=== PATIENT | female | born 1955 | race Caucasian/White ===

== ENCOUNTER → 2019-03-22 14:37 | Outpatient (BNVA) | payer MEDICAID, SELFPAY | PROVIDERS: Family Provider Nurse Practitioner; PCP Physician Assistant; Visit Provider Nurse Practitioner Psychiatric/Mental Health | DX: F43.12 Post-traumatic stress disorder, chronic (principal); F41.9 Anxiety disorder, unspecified; F17.210 Nicotine dependence, cigarettes, uncomplicated | CPT/HCPCS: 99214 ==

== ENCOUNTER → 2019-06-21 08:12 | Outpatient (BNVA) | payer MEDICAID, SELFPAY | PROVIDERS: Family Provider Nurse Practitioner; PCP Physician Assistant; Visit Provider Nurse Practitioner Psychiatric/Mental Health | DX: F43.12 Post-traumatic stress disorder, chronic (principal); F41.9 Anxiety disorder, unspecified; F17.210 Nicotine dependence, cigarettes, uncomplicated | CPT/HCPCS: 99213 ==

== ENCOUNTER → 2019-07-19 08:22 | Outpatient (BNVA) | payer MEDICAID, SELFPAY | PROVIDERS: Family Provider Nurse Practitioner; PCP Physician Assistant; Visit Provider Nurse Practitioner Psychiatric/Mental Health | DX: F43.12 Post-traumatic stress disorder, chronic (principal); F41.9 Anxiety disorder, unspecified; Z63.4 Disappearance and death of family member | CPT/HCPCS: 90832; 99213 ==

== ENCOUNTER → 2019-08-16 08:32 | Outpatient (BNVA) | payer MEDICAID, SELFPAY | PROVIDERS: Family Provider Nurse Practitioner; PCP Physician Assistant; Visit Provider Nurse Practitioner Psychiatric/Mental Health | DX: F43.12 Post-traumatic stress disorder, chronic (principal); F41.9 Anxiety disorder, unspecified; F17.210 Nicotine dependence, cigarettes, uncomplicated | CPT/HCPCS: 99212 ==

== ENCOUNTER → 2019-09-27 08:05 | Outpatient (BNVA) | payer MEDICAID, SELFPAY | PROVIDERS: Family Provider Nurse Practitioner; PCP Physician Assistant; Visit Provider Nurse Practitioner Psychiatric/Mental Health | DX: F41.9 Anxiety disorder, unspecified (principal); F43.12 Post-traumatic stress disorder, chronic; F17.210 Nicotine dependence, cigarettes, uncomplicated | CPT/HCPCS: 99212 ==

== ENCOUNTER 2019-10-13 20:46 | Emergency (ER) | payer MEDICAID, SELFPAY ==
[2019-10-13 21:02] VITALS: BP 162/97; PULSE 90; RESP 18; TEMP 35.7; O2SAT 96
--- NOTE | 2019-10-13 21:50 | ED_ITS ---
HPI - Back Pain/Injury General: Chief Complaint: Back Pain/Injury Stated Complaint: back pain Time Seen by Provider: 10/13/19 21:38 Source: patient Mode of arrival: ambulatory Limitations: no limitations History of Present Illness: HPI Narrative: Has a history of rheumatoid arthritis and chronic back pain. She sees pain management who gives her intermittent injections in her back. She also has chronic pain. This current episode started a few days ago and has been gradually worsening. It is currently unbearable. Because of some shooting pain down her thigh on the left. MD elicited complaint: back pain Pertinent past history: prior back pain and arthritis Onset (ago): day(s) Timing: constant and progressively worsening Severity: severe Similar Symptoms Previously: Yes Quality: tingling and other (shooting) Location: lumbar spine Radiation: left upper leg Exacerbating factors: movement Relieving factors: none Associated symptoms: Reports nausea; Deny chills, dysuria, fever(s) or urinary urgency Review of Systems General: Reports: 10 or more systems reviewed and unremarkable except in HPI and below Const: Denies: fever(s), chills or body aches Eyes: Denies: change in vision or blurry vision ENMT: Denies: throat pain, enlarged tonsils, odynophagia, hoarseness, mouth pain or swelling of lips/tongue Card: Denies: palpitations, irregular heart rhythm, edema or swelling of feet/ankles Resp: Denies: dyspnea, productive cough or non-productive cough GI: Reports: nausea : Denies: flank pain, difficulty voiding, dysuria, urinary frequency, urinary urgency or urinary hesitancy Musc: Reports: back pain; Denies: neck pain or extremity swelling Skin/Breast: Denies: rash, pruritus or erythema Neuro: Denies: headache(s), numbness in extremities or weakness in extremities Endo: Denies: polyuria, polydipsia or tired all the time PFSH ED PFSH: Social History (Reviewed 10/13/19 @ 21:54 by Jannet Grant MD, [facility] [place]) Smoking and tobacco status: current every day smoker cigarettes Packs smoked per day: 1 Years cigarettes smoked: 41 Quit status (tobacco): has tried quititng Number of times tried to quit tobacco: 1 Second hand smoke exposure: Yes Smoking risk assessment/counseling performed?: No Reason smoking risk assessment not done: patient refused Physical Exam Const: COMMON NORMALS: no acute distress, average body habitus, patient oriented x3, no limitations, healthy appearing, alert and well nourished HENMT: COMMON NORMALS: normocephalic, atraumatic and moist oral mucous membranes HEAD & SCALP: normocephalic and atraumatic Neck/C-Spine: COMMON NORMALS: no meningeal signs and no JVD Resp: COMMON NORMALS: normal respiratory effort, No retractions, No use of accessory muscles, clear to auscultation bilaterally and percussion normal AUSCULTATION: clear to auscultation bilaterally PERCUSSION: percussion normal Cardio: COMMON NORMALS: no JVD, regular rate, regular rhythm, S1 normal heart sound present, S2 normal heart sound present, No gallops present (Cardio), No clicks present (Cardio), No murmurs present (Cardio), No rub (Cardio) and Peripheral pulses 2+ throughout RATE: regular rate RHYTHM: regular rhythm HEART SOUNDS: S1 normal heart sound present and S2 normal heart sound present PERIPHERAL PULSES: Peripheral pulses 2+ throughout GI: COMMON NORMALS: Normal to inspection, nondistended, normoactive bowel sounds present, Soft to palpation, non-tender, No hepatosplenomegaly present, no masses and no bruits PALPATION: Yes Soft to palpation and Yes No hepatosplenomegaly present : COMMON NORMALS: Yes no CVA tenderness BLADDER/KIDNEY EXAM: Yes no CVA tenderness Back/Pelvis: COMMON NORMALS: no CVA tenderness SACROILIAC JOINTS: Yes SI joint(s) abnormal (Marked tenderness of the left SI joint) SI joint details: tender to palpation Extremity: COMMON NORMALS: normal to inspection, full ROM, capillary refill normal, no calf tenderness and no pedal edema Neuro: COMMON NORMALS: patient oriented x3 SENSORIUM/ORIENTATION: Yes alert MENINGEAL SIGNS: Yes no meningeal signs Skin: COMMON NORMALS: no rashes or lesions noted, no wounds, turgor normal, no jaundice, no petechiae and no mottling GENERAL SKIN EXAM: no rashes or lesions noted and turgor normal Course Reevaluation(s): Reevaluation #1: Patient feels better. She i ready to be discharged home. Time: 22:42 Vital Signs: Vital signs: Vital Signs Temperature 96.3 F L 07/29/20 21:02 Pulse Rate 90 10/13/19 21:02 Respiratory Rate 18 10/13/19 21:02 Blood Pressure 162/97 10/13/19 21:02 Pulse Oximetry 96 10/13/19 21:02 MDM - Back Pain/Injury MDM Narrative: Medical decision making narrative: Patient with an acute exacerbation of her chronic back pain. Examination is consistent with sacroiliitis. She was given intramuscular injections of ketorolac and Norflex. As well as dexamethasone. Pain improved. She is discharged home on oral pain medication and steroids. She will follow-up with her primary care provider and other specialist. Discharge Plan Discharge Patient Disposition: Home Clinical Impression: Sacroiliitis Condition: Stable Prescriptions: [place] 7.5-325 mg tablet 1 tab PO Q8H PRN (Reason: pain) Qty: 12 RF: 0 prednisone 20 mg tablet 20 mg PO DAILY 3 Days Qty: 3 RF: 0 Continued propranolol 40 mg tablet 40 mg PO BID RF: 0 multivitamin Tablet 1 tab PO DAILY RF: 0 albuterol sulfate 90 mcg/actuation HFA aerosol inhaler 1 inh INHALATION DAILY RF: 0 hydroxyzine pamoate [Vistaril] 25 mg capsule 25 mg PO .qhs PRN (Reason: insomnia) Qty: 30 RF: 1 cetirizine [Zyrtec] 10 mg tablet 10 mg PO DAILY RF: 0 lidocaine 5 % adhesive patch,medicated 1 patch TOPICAL DAILY RF: 0 ascorbic acid (vitamin C) 500 mg capsule 500 mg PO DAILY RF: 0 coenzyme Q10 200 mg capsule 200 mg PO DAILY RF: 0 docusate sodium [Colace] 100 mg capsule 100 mg PO BID RF: 0 bisacodyl 5 mg tablet 10 mg PO DAILY RF: 0 meloxicam 15 mg tablet 15 mg PO DAILY RF: 0 metformin 500 mg tablet 500 mg PO DAILY RF: 0 aripiprazole [Abilify] 10 mg tablet 10 mg PO DAILY Qty: 30 RF: 2 fluoxetine [Prozac] 20 mg capsule 60 mg PO DAILY Qty: 90 RF: 2 memantine [Namenda] 10 mg tablet 10 mg PO BID Qty: 60 RF: 2 lisinopril 5 mg tablet 5 mg PO DAILY Qty: 30 RF: 0 atorvastatin 40 mg tablet 40 mg PO DAILY Qty: 30 RF: 0 Discontinued hydrocodone-acetaminophen 7.5-325 mg tablet 1 tab PO Q6H PRNRF: 0 Discharge Orders: Discharge Order (Routine); Ordered 10/13/19 Ordered By: Jannet Grant Referrals: Deanna Young PA [Primary Care Provider] - 4-7 days Discharge Diet: Usual diet Discharge Activity: Increase activity as tolerated Patient Instructions: Sacroiliitis (ED) Activity Restrictions/Additional Instructions: Return for any new or worsening symptoms. Follow-up with your primary care provider within 1 week. Follow-up with your pain management doctor and your rehabilitation program coordinator. Take the medications as prescribed. Coding Level of Care Code ED Pet Caretaker for Chg Fwd Exam Comprehensive
[2019-10-13] MEDS: ketorolac 30 mg/mL INJ IM (22:27)
[2019-10-13] MEDS: orphenadrine 30 mg/mL Inj 2 mL 60 MG IM (22:29)
[2019-10-13] MEDS: dexamethasone 10 mg/mL INJ IM (22:31)
[2019-10-13 23:02] VITALS: BP 146/88; PULSE 76; RESP 18; O2SAT 97
== END 2019-10-13 23:04 | disposition home or self-care (01) ==
PROVIDERS: Emergency Provider Family Medicine; PCP Physician Assistant
DX: M46.1 Sacroiliitis, not elsewhere classified (principal); F17.210 Nicotine dependence, cigarettes, uncomplicated
CPT/HCPCS: 12345; 96372; 99281; 99283; J1100; J1885; J2360

== ENCOUNTER 2019-11-05 15:30 | Outpatient (CLI) | payer MEDICAID, SELFPAY ==
--- NOTE | 2019-11-05 16:14 | MR_ITS ---
WS: [id number] EXAM: MR lumbar spine wo con* [id number] DATE OF EXAMINATION: 11/05/2019, 1624 hours COMPARISON: MRI of the lumbar spine from 01/19/2010 HISTORY: 63 years old with low back pain TECHNIQUE: Sagittal T1, T2 and T2 inversion recovery: Axial proton density and T2 FINDINGS: Lower thoracic and lumbar vertebrae as well as upper sacral segments are of normal height and marrow signal characteristics. Cord is normal caliber and terminates at the mid to inferior L1 level. Visualized cord is normal in s ignal characteristics. Disc levels at T7-8, T8-9, T9-10, T10-11 and T11-12 all show slight degenerative spondylosis changes without protrusion, canal or neural foraminal stenosis. T12-L1: Minimal desiccation of the disc otherwise normal discs level L1-2: Slight desiccation of the disc with minimal disc bulging. Minimal facet arthropathy changes. No protrusion, canal or neural foraminal stenosis. L2-3: Slight desiccation of the disc. Minimal disc bulging into both neural foramina. Minimal facet a rthropathic changes. No protrusion, canal or neural foraminal stenosis L3-4: Minimal desiccation of the disc otherwise normal disc level. Minimal facet arthropathy changes. No protrusion, canal or neural foraminal stenosis L4-5: Moderate desiccation of the disc. Moderate facet arthropathy changes. Minute amount of anteroli sthesis of L4 on 5. No findings of protrusion are identified. Both neural foramen are minimally narro wed without stenosis. No central canal stenosis. L5-S1: Desiccation of the disc. Minimal facet arthropathy changes. No protrusion, canal or neural for aminal stenosis. High intensity zone in the posterior annulus of the disc in the left lateral recess to the left medial neural foraminal position consistent with a fissure or tear. No abnormal inflammatory changes are seen on inversion recovery sequencing. Paraspinal soft tissues a re fairly unremarkable. MR/MR lumbar spine wo con* [id number] IMPRESSION: Multiple levels of slight arthritis. Most severe facet arthropathy changes are noted at the L4-5 level with minimal anterolisthesis of L4 on L5. No findings o f protrusion, canal or neural foraminal stenosis. L5-S1 disc with a high intensity zone in the posterior annulus left lateral rec ess to medial left neural foramen position consistent with a fissure or tear.
== END 2019-11-05 15:31 | disposition home or self-care (01) ==
LOC: RADSHAW 15:34
PROVIDERS: PCP Physician Assistant; Visit Provider Internal Medicine Rheumatology
DX: M54.16 Radiculopathy, lumbar region (principal); M54.5 Low back pain
CPT/HCPCS: 72148

== ENCOUNTER → 2019-12-20 09:11 | Outpatient (BNVA) | payer MEDICAID, SELFPAY | PROVIDERS: Family Provider Nurse Practitioner; PCP Physician Assistant; Visit Provider Nurse Practitioner Psychiatric/Mental Health | DX: F41.9 Anxiety disorder, unspecified (principal); F43.12 Post-traumatic stress disorder, chronic; F17.210 Nicotine dependence, cigarettes, uncomplicated | CPT/HCPCS: 99212 ==

== ENCOUNTER → 2020-02-15 08:03 | Outpatient (BNVA) | payer MEDICAID, SELFPAY | PROVIDERS: Family Provider Nurse Practitioner; PCP Physician Assistant; Visit Provider Nurse Practitioner Psychiatric/Mental Health | DX: F43.12 Post-traumatic stress disorder, chronic (principal); F41.9 Anxiety disorder, unspecified; F17.210 Nicotine dependence, cigarettes, uncomplicated | CPT/HCPCS: 99212 ==

== ENCOUNTER → 2020-04-20 09:58 | Outpatient (BNVA) | payer MEDICAID, SELFPAY | PROVIDERS: Family Provider Nurse Practitioner; PCP Physician Assistant; Visit Provider Nurse Practitioner Psychiatric/Mental Health | DX: F41.9 Anxiety disorder, unspecified (principal); F43.12 Post-traumatic stress disorder, chronic; F17.210 Nicotine dependence, cigarettes, uncomplicated | CPT/HCPCS: 99213 ==

== ENCOUNTER → 2020-05-19 09:22 | Outpatient (BNVA) | payer MEDICAID, SELFPAY | PROVIDERS: Family Provider Nurse Practitioner; PCP Physician Assistant; Visit Provider Surgery | DX: Z20.822 Contact with and (suspected) exposure to COVID-19 (principal) | CPT/HCPCS: 87635 ==

== ENCOUNTER 2020-05-25 06:24 | Day surgery (SDC) | payer MEDICAID, SELFPAY ==
[2020-05-23 14:17] VITALS: BMI 23.3
--- NOTE | 2020-05-25 06:35 | W.PM.OPSUD ---
Surgery/Procedure H&P Update DATE OF PROCEDURE: May 25, 2020 DATE H&P PERFORMED: 05/16/20 H&P UPDATE INFORMATION: No changes to prior documentation CHANGES TO PREVIOUS DOCUMENTATION: I noted that the patient does not take [id number] NSAIDs on a regular basis, but does have meloxicam on her medication list and says she does take this daily. PLANNED PROCEDURE: Operation Date: 05/25/20 07:00 Proposed Procedures p EGD 10270 R10.13 K21.9 Z87.11(Not Applicable) - Roby Mims MD
[2020-05-25 06:42] VITALS: BP 144/102; PULSE 93; RESP 18; TEMP 36.4; O2SAT 97
--- NOTE | 2020-05-25 06:51 | ANES.PREANE2 ---
Pre-Anesthetic Assessment Pre-Anesthetic Assessment: Height/Weight: Height 1.68 m Weight 65.771 kg Temp Pulse Resp BP Pulse Ox 97.6 F 93 18 144/102 97 05/25/20 06:42 05/25/20 06:42 05/25/20 06:42 05/25/20 06:42 05/25/20 06:42 Proposed Procedure: Operation Date: 05/25/20 07:00 Proposed Procedures p EGD 38446 R10.13 K21.9 Z87.11(Not Applicable) - Roby Mims MD Familial anesthetic complications: none Was Beta Brissa taken within 24 hours: Yes (no) Last intake: Intake Last Liquid Date 05/24/20 Last Liquid Time 18:00 Last Solid Date 05/24/20 Last Solid Time 18:00 Social: Social History: Tobacco Exam: Pre-Anes Outpt Exam: alert and oriented x 3 Airway: Submandibular: WNL Cervical ROM: WNL MP: 2 Dentition: Partials History/ROS: No significant history except as noted Pulmonary: Pulmonary: Asthma, COPD and Sleep apnea CV/HEM: CV/HEM: HTN : : None reported Hepatic: Hepatic: None reported GI: GI: GERD Metabolic: Metabolic: DM Musc/skel: Musc/skel: Lower Back Pain and RA Neuropsych: Neuropsych: Anxiety and Depression Anesthetic Plan: ASA status: 3 Anesthesia: Anesthesia Evaluation and MAC Risk of > 500 ml blood loss (7ml/kg in children): No PFSH Anesthesia PFSH: Social History (System 10/29/19 @ 12:58 by Hiwot Gamboa) Smoking and tobacco status: current every day smoker cigarettes Packs smoked per day: 1 Years cigarettes smoked: 41 Quit status (tobacco): has tried quititng Number of times tried to quit tobacco: 1 Second hand smoke exposure: Yes Smoking risk assessment/counseling performed?: No Reason smoking risk assessment not done: patient refused Data Anesthesia Cardiac Studies: No Data to Display
[2020-05-25] MEDS: sodium chloride 0.9% 1,000 ML 30 ML IV (06:53)
[2020-05-25 07:16] VITALS: BP 132/79; PULSE 80; RESP 18; TEMP 36.7; O2SAT 95
[2020-05-25 07:31] VITALS: BP 141/107; PULSE 79; RESP 18; O2SAT 94
--- NOTE | 2020-05-25 11:03 | ANE.PACU2 ---
Inpatient post-anesthesia follow up: Airway intact: Yes Vital signs: Temperature 98.1 F Pulse Rate 79 Respiratory Rate 18 Blood Pressure 141/107 Pulse Oximetry 94 Oxygen Delivery Me thod Room Air Oxygen Flow Rate Fraction of Inspir ed Oxygen Hydration adequate: Yes Nausea and vomiting: No Pain level: 1 Mental status: Baseline
[2020-05-26 12:57] LABS: H. Pylori / CLO Test Negative
== END 2020-05-25 07:40 | disposition home or self-care (01) ==
PROVIDERS: Family Provider Nurse Practitioner; PCP Physician Assistant; Visit Provider Surgery
PROC: 0DJ08ZZ Inspection of Upper Intestinal Tract, Via Natural or Artificial Opening Endoscopic (ICD-10-PCS; CPT 43235; principal; 2020-05-25 07:00)
DX: R10.13 Epigastric pain (principal); K44.9 Diaphragmatic hernia without obstruction or gangrene; K29.70 Gastritis, unspecified, without bleeding; K21.9 Gastro-esophageal reflux disease without esophagitis; Z87.11 Personal history of peptic ulcer disease; Z86.010 Personal history of colon polyps; E11.9 Type 2 diabetes mellitus without complications; J43.9 Emphysema, unspecified; G47.30 Sleep apnea, unspecified; Z79.84 Long term (current) use of oral hypoglycemic drugs; I10 Essential (primary) hypertension; M06.9 Rheumatoid arthritis, unspecified; F17.210 Nicotine dependence, cigarettes, uncomplicated
CPT/HCPCS: 12345; 43239; 87077; 96360; J7030

== ENCOUNTER → 2020-07-13 08:24 | Outpatient (BNVA) | payer MEDICAID, SELFPAY | PROVIDERS: Family Provider Nurse Practitioner; PCP Physician Assistant; Visit Provider Nurse Practitioner Psychiatric/Mental Health | DX: F41.9 Anxiety disorder, unspecified (principal); F43.12 Post-traumatic stress disorder, chronic; F17.210 Nicotine dependence, cigarettes, uncomplicated; Z79.899 Other long term (current) drug therapy | CPT/HCPCS: 99213 ==

== ENCOUNTER → 2020-10-05 07:34 | Outpatient (BNVA) | payer MEDICAID, SELFPAY | PROVIDERS: Family Provider Nurse Practitioner; PCP Physician Assistant; Visit Provider Nurse Practitioner Psychiatric/Mental Health | DX: F41.9 Anxiety disorder, unspecified (principal); F43.12 Post-traumatic stress disorder, chronic; Z79.899 Other long term (current) drug therapy; F17.210 Nicotine dependence, cigarettes, uncomplicated | CPT/HCPCS: 99213 ==

== ENCOUNTER → 2020-10-11 09:08 | Outpatient (BNVA) | payer MEDICAID, SELFPAY | PROVIDERS: Family Provider Nurse Practitioner; PCP Physician Assistant; Visit Provider Nurse Practitioner Psychiatric/Mental Health | DX: Z79.899 Other long term (current) drug therapy (principal) | CPT/HCPCS: 80061; 83036 ==

== ENCOUNTER → 2020-11-30 08:37 | Outpatient (BNVA) | payer MEDICAID, SELFPAY | PROVIDERS: Family Provider Nurse Practitioner; PCP Physician Assistant; Visit Provider Nurse Practitioner Psychiatric/Mental Health | DX: F41.9 Anxiety disorder, unspecified (principal); F43.12 Post-traumatic stress disorder, chronic; F17.210 Nicotine dependence, cigarettes, uncomplicated | CPT/HCPCS: 99213 ==

== ENCOUNTER 2020-12-21 20:00 | Outpatient (CLI) | payer MEDICAID, SELFPAY | END 2020-12-21 20:01 | disposition home or self-care (01) | LOC: SLEEP 12-26 07:55 | PROVIDERS: Family Provider Nurse Practitioner; PCP Physician Assistant; Visit Provider Physician Assistant | DX: G47.10 Hypersomnia, unspecified (principal); R06.83 Snoring; R53.83 Other fatigue | CPT/HCPCS: 95810 ==

== ENCOUNTER 2020-12-26 13:02 | Outpatient (CLI) | payer MEDICAID, SELFPAY ==
--- NOTE | 2020-12-26 13:45 | MR_ITS ---
WS: [id number] MRI BRAIN WITH AND WITHOUT CONTRAST HISTORY: MILD COGNITIVE IMPAIRMENT W/MEMORY LOSS COMPARISON: 11/02/2008 TECHNIQUE: Multiplanar imaging performed through the brain with MultiHance 20 ml's IV. No acute infarcts are seen. Goddard-white matter differentiation is well preserved. Numerous scattered T 2 and FLAIR signal hyperintensities in the subcortical white matter with mild progression since the s tudy from 2008. No prior infarct or hemorrhage. No susceptibility artifacts or prior lacunar infarcts. Ventricles and extra-axial spaces are normal. Clivus and pituitary gland are normal. Visualized posterior fossa and brainstem are also normal. Postcontrast images are negative for masses or vascular malformations. Dural venous sinuses are normal. Paranasal sinuses: Well aerated with no significant disease. Mastoid air cells: Normal. Calvarium and scalp: Normal. MR/MR head wo/w con [id number] IMPRESSION: 1. No acute infarct, hemorrhage or mass. 2. Moderate small vessel ischemic changes in the white matter. Progressed sinc e 2008. No prior large territory infarct. 3. No significant atrophy.
[2020-12-26] MEDS: gadobenate dimeglumine 20 mL vial IV (14:28)
== END 2020-12-26 13:03 | disposition home or self-care (01) ==
LOC: RADSHAW 13:07
PROVIDERS: PCP Physician Assistant; Visit Provider Physician Assistant
DX: G31.84 Mild cognitive impairment of uncertain or unknown etiology (principal)
CPT/HCPCS: 70553; A9577

== ENCOUNTER → 2021-02-22 08:55 | Outpatient (BNVA) | payer MEDICAID, SELFPAY | PROVIDERS: PCP Physician Assistant; Visit Provider Nurse Practitioner Psychiatric/Mental Health | DX: F41.9 Anxiety disorder, unspecified (principal); F43.12 Post-traumatic stress disorder, chronic; Z63.0 Problems in relationship with spouse or partner; F17.210 Nicotine dependence, cigarettes, uncomplicated | CPT/HCPCS: 99213 ==

== ENCOUNTER → 2021-05-17 12:44 | Outpatient (BNVA) | payer MEDICAID, SELFPAY | PROVIDERS: PCP Physician Assistant; Visit Provider Nurse Practitioner Psychiatric/Mental Health | DX: F41.9 Anxiety disorder, unspecified (principal); F43.12 Post-traumatic stress disorder, chronic; F17.210 Nicotine dependence, cigarettes, uncomplicated; R41.3 Other amnesia; Z79.899 Other long term (current) drug therapy | CPT/HCPCS: 99213 ==

== ENCOUNTER → 2021-08-08 14:26 | Outpatient (BNVA) | payer MEDICAID, SELFPAY | PROVIDERS: PCP Physician Assistant; Visit Provider Internal Medicine | DX: B16.9 Acute hepatitis B without delta-agent and without hepatic coma (principal); Z79.899 Other long term (current) drug therapy; R41.3 Other amnesia; F17.210 Nicotine dependence, cigarettes, uncomplicated; F41.9 Anxiety disorder, unspecified; F43.12 Post-traumatic stress disorder, chronic | CPT/HCPCS: 80053; 80061; 83036; 85025; 86705; 86706; 86709; 86803; 87340; 87517 ==

== ENCOUNTER → 2021-08-20 08:56 | Outpatient (BNVA) | payer MEDICAID, SELFPAY | PROVIDERS: PCP Physician Assistant; Visit Provider Nurse Practitioner Psychiatric/Mental Health | DX: F41.9 Anxiety disorder, unspecified (principal); F43.12 Post-traumatic stress disorder, chronic; R41.3 Other amnesia | CPT/HCPCS: 99213 ==

== ENCOUNTER → 2021-09-05 15:09 | Outpatient (BNVA) | payer MEDICAID, SELFPAY | PROVIDERS: PCP Physician Assistant; Visit Provider Internal Medicine | DX: B16.9 Acute hepatitis B without delta-agent and without hepatic coma (principal); Z79.899 Other long term (current) drug therapy | CPT/HCPCS: 80053; 86705; 86706; 87340 ==

== ENCOUNTER → 2021-12-19 15:14 | Outpatient (BNVA) | payer MEDICARE, MEDICAID, SELFPAY | PROVIDERS: PCP Physician Assistant; Visit Provider Internal Medicine | DX: B18.1 Chronic viral hepatitis B without delta-agent (principal) | CPT/HCPCS: 80053; 87517 ==

== ENCOUNTER → 2021-12-20 08:34 | Outpatient (BNVA) | payer MEDICARE, MEDICAID, SELFPAY | PROVIDERS: PCP Physician Assistant; Referring Provider Physician Assistant; Visit Provider Student in an Organized Health Care Education/Training Program | DX: M18.11 Unilateral primary osteoarthritis of first carpometacarpal joint, right hand (principal) | CPT/HCPCS: 99204 ==

== ENCOUNTER 2021-12-25 06:00 | Outpatient (RCR) | payer MEDICARE, MEDICAID, SELFPAY | END 2022-01-14 23:59 | disposition home or self-care (01) | LOC: SOT 06:00 | PROVIDERS: PCP Physician Assistant; Visit Provider Physician Assistant | DX: M79.644 Pain in right finger(s) (principal); Z96.691 Finger-joint replacement of right hand | CPT/HCPCS: 97110; 97140; 97166; L3807 ==

== ENCOUNTER 2022-01-02 08:39 | Day surgery (SDC) | payer MEDICARE, MEDICAID, SELFPAY ==
[2022-01-01 09:56] VITALS: BMI 25.7
--- NOTE | 2022-01-02 | SCC_ITS ---
Procedure Done: Right thumb CMC joint arthroplasty(trapeziectomy and suspensioplasty) 15 seconds of fluoroscopic guidance, for a cumulative dose of 0.2 mGy, was provided to Dr. Godoy by the radiology department. C-arm images of the RIGHT finger were saved for the patient's permanent record. [facility]
--- NOTE | 2022-01-02 | XR_ITS ---
WS: [id number] views of the right first finger, C-arm fluoroscopy, 01/02/2022 Clinical Data: right thumb Comparison: Right hand, 12/06/2021 Findings: The trapezium was removed. There are radiopaque surgical items overlying the surgical site XR/XR finger RT min 2V [id number] Impression: Trapezium removal.
[2022-01-02 09:02] VITALS: BP 160/96; PULSE 100; RESP 18; TEMP 36.4; O2SAT 98
[2022-01-02] MEDS: acetaminophen 1,000 MG/100 ML PIGGYBACK 400 MG IV (09:10)
[2022-01-02] MEDS: ketorolac 30 mg/mL INJ IVP (09:10)
[2022-01-02] MEDS: sodium chloride 0.9% 1,000 ML 30 ML IV (09:11)
[2022-01-02 09:37] LABS: Glucose Point of Care 140 mg/dL (70-110)
--- NOTE | 2022-01-02 09:37 | W.PM.OPSUD ---
Surgery/Procedure H&P Update DATE OF PROCEDURE: January 02, 2022 DATE H&P PERFORMED: 12/20/21 CHANGES TO PREVIOUS DOCUMENTATION: None PREOP DIAGNOSIS: Right thumb basal joint arthritis PRIMARY INDICATION FOR PROCEDURE: Right thumb basal joint arthritis failed conservative treatment PLANNED PROCEDURE: Operation Date: 01/02/22 10:05 Proposed Procedures p RIGHT THUMB BASAL JOINT ATHROPLASTY 56776,M79.643(Right) - Marcelo Godoy DO
--- NOTE | 2022-01-02 09:48 | ANES.PREANE2 ---
Pre-Anesthetic Assessment Height/Weight: Height 1.68 m Weight 72.121 kg Temp Pulse Resp BP Pulse Ox O2 Del Method 97.5 F L 100 18 160/96 98 01/02/22 09:02 01/02/22 09:02 01/02/22 09:02 01/02/22 09:02 01/02/22 09:02 01/02/22 09:02 Preop Diagnosis: Right thumb basal joint arthritis Operation Date: 01/02/22 10:05 Proposed Procedures p RIGHT THUMB BASAL JOINT ATHROPLASTY 21637,M79.643(Right) - Marcelo Walt, DO Familial anesthetic complications: None Was Beta Brissa taken within 24 hours: N/A Was Clonidine taken within 24 hours: N/A Last intake: Intake Last Liquid Date 01/01/22 Last Liquid Time 23:00 Last Solid Date 01/01/22 Last Solid Time 23:00 Social Tobacco and No alcohol Exam alert, oriented x 3, clear to auscultation bilaterally and regular rate & rhythm Airway Mallampati: Class II Dentition: loose and partials Pulmonary Chronic Obstructive Pulmonary Disease sarcoidosis Hepatic Hepatitis (B) GI Gastroesophageal Reflux Disease Metabolic Diabetes Mellitus Musc/skel Lower Back Pain and Rheumatoid Arthritis Anesthetic Plan ASA status: 3 Anesthesia: General and Regional (specify below) Risk of > 500 ml blood loss (7ml/kg in children): No Medications/Allergies Home Medications Medication Instructions Recorded Confirmed Last Taken Type albuterol sulfate 90 mcg/actuation 2 inh inhalation DAILY 03/22/19 01/02/22 1 Month Ago History aerosol inhaler ~12/03/21 ascorbic acid (vitamin C) 500 mg 500 mg PO DAILY 03/22/19 01/02/22 01/01/22 History capsule bisacodyl 5 mg tablet 10 mg PO DAILY 03/22/19 01/02/22 01/01/22 History docusate sodium 100 mg capsule 200 mg PO BID 03/22/19 01/02/22 01/01/22 History (Colace) lidocaine 5 % topical patch 1 patch topical DAILY 03/22/19 01/02/22 01/01/22 History meloxicam 15 mg tablet 15 mg PO DAILY 03/22/19 01/02/22 01/01/22 History multivitamin 1 tab PO DAILY 03/22/19 01/02/22 01/01/22 History metformin 500 mg tablet 500 mg PO DAILY 07/16/19 01/02/22 01/01/22 History pantoprazole 40 mg tablet,delayed 40 mg PO DAILY 07/11/20 01/02/22 01/01/22 History release propranolol 40 mg tablet 20 mg PO BID PRN Headache 02/22/21 01/02/22 01/01/22 History tizanidine 2 mg capsule 2 mg PO Q8H PRN Pain 09/05/21 01/02/22 12/31/21 History entecavir 0.5 mg tablet 0.5 mg PO DAILY #90 tabs 10/29/21 01/02/22 01/01/22 Rx aripiprazole 10 mg tablet (Abilify) 10 mg PO DAILY #30 tabs 11/15/21 01/02/22 01/01/22 Rx fluoxetine 40 mg capsule 40 mg PO QAM #30 caps 11/15/21 01/02/22 01/01/22 Rx memantine 10 mg tablet (Namenda) 10 mg PO BID #60 tabs 11/15/21 01/02/22 01/01/22 Rx triamcinolone acetonide 0.1 % 1 applic topical BID #80 grams 12/24/21 01/02/22 Unknown Rx topical ointment hydrocodone 5 mg-acetaminophen 325 1 tab PO Q6H PRN pain 7 days #28 01/02/22 Unknown Rx mg tablet tabs mupirocin 2 % topical ointment 1 applic topical BID PRN sores 01/02/22 01/02/22 2 Months Ago History ~11/02/21 Allergies Allergy/AdvReac Type Severity Reaction Status Date / Time Opioids - Morphine Analogues Allergy Unknown Unknown Verified 01/02/22 08:57 Sulfa (Sulfonamide Allergy rash Verified 01/02/22 08:57 Antibiotics) tiotropium Allergy Unknown Verified 01/02/22 08:57 [From Spiriva with HandiHaler] trazodone Allergy hypersomnia Verified 01/02/22 08:57 Current Medications Generic Name Dose Route Start Last Admin Trade Name Freq PRN Reason Stop Dose Admin Sodium Chloride 1,000 mls @ 30 mls/hr 01/02/22 08:45 01/02/22 09:11 Sodium Chloride 0.9% IV 01/03/22 08:44 30 mls/hr .Q24H BOOGIE Administration PFSH Anesthesia Medical History Arthritis of carpometacarpal (CMC) joint of right thumb Memory impairment Psychiatric care Social History Smoking and tobacco status: current every day smoker cigarettes Packs smoked per day: 0.25 Years cigarettes smoked: 41 Quit status (tobacco): has tried quititng Number of times tried to quit tobacco: 1 Second hand smoke exposure: Yes Smoking risk assessment/counseling performed?: No Reason smoking risk assessment not done: patient refused Data Anesthesia Cardiac Studies: No Data to Display
--- NOTE | 2022-01-02 09:51 | ANES.PROC ---
Anesthesia Procedures Procedure/Date: 01/02/22 Nerve Block ^: Nerve Block 1: Main Anesthesia: general anesthesia Time Out Performed: No Consent: requested by attending/covering physician, from patient, risks and benefits reviewed and patient agrees to proceed Nerve block location: axillary (+ musculocutaneous) Anesthesia monitors applied: pulse oximetry, EKG and BP cuff Nerve block position: supine Anesthetic Used: ropivicaine 0.5% (30 ml) and with decadron (4 mg) Ultrasound used to: recognize landmarks and visualize and ID brachial plexus Interscalene/Femoral BLK: 2 stimuplex 22 g needle used for position and inplane approach, visualize local anesthetic spread and no vascular puncture identified Injection: neg aspiration of heme Patient Tolerated Procedure: well Complications: none
[2022-01-02 11:48] VITALS: BP 137/73; PULSE 77; RESP 14; TEMP 36.3; O2SAT 98
[2022-01-02 11:55] VITALS: BP 163/95; PULSE 80; RESP 14; O2SAT 98
[2022-01-02 11:59] VITALS: BP 174/94; PULSE 76; RESP 14; TEMP 36.1; O2SAT 94
[2022-01-02 12:13] VITALS: BP 154/90; PULSE 76; RESP 18; TEMP 36.1; O2SAT 95
--- NOTE | 2022-01-02 12:17 | PM.OP2 ---
Brief Operative Note Date of procedure: 01/02/22 Pre-op diagnosis: Right thumb basal joint arthritis failed conservative treatment Post-op diagnosis: same Procedure Done: Right thumb CMC joint arthroplasty(trapeziectomy and suspensioplasty) Surgeon: Marcelo Godoy Estimated blood loss (mL): 10 Complications: None Post-op Plan: Patient recover in PACU. Patient fingers warm well perfused. Dressing clean dry and intact. Patient will discharge later today. Patient was given appropriate discharge instructions as well as pain medication postoperatively. We will follow-up with me in office in 2 weeks. Nonweightbearing right hand. Condition: stable Disposition: same day Coding Level of Care Code Acute Avionics Safety Inspector for Daniela Guadalupe
--- NOTE | 2022-01-02 12:19 | PM.PACU ---
PACU note Narrative: Patient seen and evaluated in PACU. Patient recovering well. Patient received block unable assess motor or sensory. Brisk capillary refill less than 2 seconds. Hands are warm well perfused. Patient will discharge later today and plan for follow-up in 2 weeks. Splint on in place dressing clean dry and intact. Exam: awake (Patient received regional anesthesia unable to assess motor or sensory, see narrative for exam) Disposition: discharged
--- NOTE | 2022-01-02 12:19 | PM.OP ---
Operative Report Date of procedure: January 02, 2022 Pre-op diagnosis: Preop Diagnosis Right thumb basal joint arthritis Post-op diagnosis: Same Procedure done: Right thumb CMC joint arthroplasty Implants: Arthrex fiber lock suspension implant Surgeon: Marcelo Godoy DO Estimated blood loss: 10 cc 44 minutes IV fluids: See anesthesia record Complications: None Findings: See operative report narrative Condition: stable Disposition: same day Brief History: Mabel is a pleasant 66-year-old female who has been worked up in the outpatient setting for right thumb basal joint arthritis. Upon my evaluation and work-up with patient she has had over 10 injections into this right thumb by previous surgeons and primary care providers for her in the past. This point time she has significant pain that is debilitating her daily activities. Patient is failed conservative treatment for her right thumb arthritis. We had detailed discussion about continuing with conservative measures versus surgical intervention. Through shared decision making we agreed to proceed with surgical intervention for right thumb basal joint CMC arthroplasty. She understands the risk benefits complication alternatives surgical treatment options. She agrees to proceed with surgical intervention consent was obtained in office. Patient understands and agrees to proceed with current plan. All questions answered. Procedure: Patient was seen and evaluated in the preoperative holding area. Consent was reviewed with patient correct extremity was marked. Seen evaluated by preoperative and anesthesia team once cleared for surgery she was taken back to the operative suite placed onto the OR table in supine position with right armboard in place. She was appropriately secured to the bed all bony prominences well-padded. Underwent anesthesia per the anesthesia department. The right upper extremity was then placed with a nonsterile tourniquet. Right upper extremity prepped and draped in standard orthopedic fashion. Final timeout performed. Patient received appropriate preoperative antibiotics. Esmarch tourniquet was used to exsanguinate the right upper extremity. Tourniquet was insufflated to 250 mmHg. A standard longitudinal incision was made over the dorsal radial aspect of the CMC joint centering over the first basal joint. Sharp scalpel excision through skin and Littler dissection scissors were used to dissect and create full-thickness skin flaps. Care to protect dorsal cutaneous branch. Identified first dorsal compartment tendons. Performed first dorsal compartment release to allow for appropriate mobilization of the APL and EPB. Went in between this interval identified the capsule. I utilized dissection scissors to spread along the plane of the branch of the radial artery which was then identified and protected throughout the case. And then subsequently utilized a Garrett blade to perform a capsulotomy of the first CMC joint. Immediately on encountering I found 2 large loose bodies these were excised. I then placed my Chappell to confirm utilizing mini C arm that was in the appropriate position prior to performing my trapeziectomy. Once confirmed I then utilized a McGlamery elevator as well as a combination of Chappell elevator Garrett blade and rongeur and excised and performed my trapeziectomy atraumatically. At this point time the floor of the incision FCR was noted. I then identified and made sure my dissection had appropriate visualization of the base of the second metacarpal. Final fluoroscopic imaging was performed to confirm appropriate excision of all of trapezium. I then introduced a Chappell into the STT joint which was free of any arthritis. Next I plan to proceed with my suspensioplasty utilizing Arthrex is fiber lock suspension implant kit technique. My fiber lock pin was then drilled into the base of the second metacarpal. This was drilled bicortically. Appropriate drill sleeve was then introduced and bicortical drilling was performed. I then introduced my all suture suspension implant through this cannulated drill guide and confirmed on mini C arm to be past the second cortex and once this was done implant deployed and pulled back and excellent fixation was noted. Next I then noted the base of the first metacarpal and then on the radial aspect of the base I then subsequently placed my guidepin drilled and then loaded my suture anchor. Prior to my fixation I had my expanded function dental assistant hold the thumb in appropriate position with care to not overly distract but to hold in appropriate anatomic position with care not to pronate or supinate the thumb. Once in appropriate position I loaded the suture in the anchor and this was impacted into the first metacarpal base with excellent fixation. The excess suture tapes were loaded on a free needle and then sutured into the FCR tendon for added fixation. This point time thorough irrigation of the wound bed tourniquet deflated hemostasis was satisfactory with electrocautery. I did utilize some Gelfoam to help with interposition of the space from the trapeziectomy as well as to help with hemostasis. This point time I then sequentially closed the wound in layered fashion with interrupted 3-0 Vicryl suture in a running horizontal nylon mattress stitch. Wounds were then dressed with Xeroform 4 x 4's ABD Curlex and soft roll and a thumb spica splint was then applied. Patient was then awakened from anesthesia and taken to PACU in stable condition. Disposition patient tolerated procedure without complications. She was taken to PACU in stable condition. She has splint on in place clean dry and intact should be nonweightbearing to the right upper extremity. Patient was given appropriate discharge instructions pain medication and postoperative follow-up. Follow-up with me in 2 weeks. Understands she has any questions or concerns she can contact the office.
[2022-01-02 12:38] VITALS: BP 152/92; PULSE 77; RESP 18; O2SAT 99
--- NOTE | 2022-01-02 13:59 | ANE.PACU2 ---
Inpatient post-anesthesia follow up: Airway intact: Yes Vital signs: Temperature 97.0 F Pulse Rate 77 Respiratory Rate 18 Blood Pressure 152/92 Pulse Oximetry 99 Oxygen Delivery Me thod Room Air Oxygen Flow Rate Fraction of Inspir ed Oxygen Hydration adequate: Yes Nausea and vomiting: No Pain level: 1 Mental status: Baseline
== END 2022-01-02 12:50 | disposition home or self-care (01) ==
PROVIDERS: PCP Physician Assistant; Visit Provider Student in an Organized Health Care Education/Training Program
PROC: (CPT 26535; principal; 2022-01-02 09:55)
DX: M19.041 Primary osteoarthritis, right hand (principal)
CPT/HCPCS: 25447; 36416; 73140; 76000; 82962; C1713; J1100; J1885; J2704; J2795; J3010; J7030

== ENCOUNTER → 2022-01-10 09:46 | Outpatient (BNVA) | payer MEDICARE, MEDICAID, SELFPAY | PROVIDERS: PCP Physician Assistant; Visit Provider Student in an Organized Health Care Education/Training Program | DX: M18.11 Unilateral primary osteoarthritis of first carpometacarpal joint, right hand (principal) | CPT/HCPCS: 99024 ==

== ENCOUNTER 2022-01-15 06:00 | Outpatient (RCR) | payer MEDICARE, MEDICAID, SELFPAY | END 2022-02-13 23:59 | disposition home or self-care (01) | LOC: SOT 06:00 | PROVIDERS: PCP Physician Assistant; Visit Provider Physician Assistant | DX: M18.11 Unilateral primary osteoarthritis of first carpometacarpal joint, right hand (principal); Z98.890 Other specified postprocedural states | CPT/HCPCS: 20600; 73130; 97018; 97110; 97140; 99024 ==

== ENCOUNTER 2022-02-14 06:00 | Outpatient (RCR) | payer MEDICARE, MEDICAID, SELFPAY | END 2022-03-16 23:59 | disposition home or self-care (01) | LOC: SOT 06:00 | PROVIDERS: PCP Physician Assistant; Visit Provider Physician Assistant | DX: M79.644 Pain in right finger(s) (principal); Z96.691 Finger-joint replacement of right hand; Z98.890 Other specified postprocedural states | CPT/HCPCS: 97018; 97110; L3807 ==

== ENCOUNTER → 2022-02-21 10:12 | Outpatient (BNVA) | payer MEDICARE, MEDICAID, SELFPAY | PROVIDERS: PCP Physician Assistant; Visit Provider Student in an Organized Health Care Education/Training Program | DX: Z98.890 Other specified postprocedural states (principal); M18.11 Unilateral primary osteoarthritis of first carpometacarpal joint, right hand | CPT/HCPCS: 99024 ==

== ENCOUNTER 2022-03-17 06:00 | Outpatient (RCR) | payer MEDICARE, MEDICAID, SELFPAY | END 2022-04-16 23:59 | disposition home or self-care (01) | LOC: SOT 06:00 | PROVIDERS: PCP Physician Assistant; Visit Provider Physician Assistant | DX: M79.644 Pain in right finger(s) (principal); Z96.692 Finger-joint replacement of left hand; M18.11 Unilateral primary osteoarthritis of first carpometacarpal joint, right hand; Z98.890 Other specified postprocedural states | CPT/HCPCS: 97018; 97035; 97110 ==

== ENCOUNTER 2022-04-17 06:00 | Outpatient (RCR) | payer MEDICARE, MEDICAID, SELFPAY | END 2022-05-09 12:16 | disposition home or self-care (01) | LOC: SOT 06:00 | PROVIDERS: PCP Physician Assistant; Visit Provider Physician Assistant | DX: Z47.89 Encounter for other orthopedic aftercare | CPT/HCPCS: 97035; 97110 ==

== ENCOUNTER → 2022-06-27 15:28 | Outpatient (BNVA) | payer MEDICARE, MEDICAID, SELFPAY | PROVIDERS: PCP Physician Assistant; Visit Provider Student in an Organized Health Care Education/Training Program | DX: M18.11 Unilateral primary osteoarthritis of first carpometacarpal joint, right hand (principal); Z98.890 Other specified postprocedural states | CPT/HCPCS: 73130 ==

== ENCOUNTER 2022-06-27 16:10 | Outpatient (CLI) | payer MEDICARE, MEDICAID, SELFPAY | END 2022-06-27 16:11 | disposition home or self-care (01) | LOC: SPT 16:11 | PROVIDERS: PCP Physician Assistant; Visit Provider Student in an Organized Health Care Education/Training Program | DX: Z46.89 Encounter for fitting and adjustment of other specified devices (principal); M79.641 Pain in right hand | CPT/HCPCS: 97760; 99213; L3809 ==

== ENCOUNTER 2022-08-05 09:19 | Outpatient (CLI) | payer MEDICARE, MEDICAID, SELFPAY ==
--- NOTE | 2022-08-05 09:26 | FL_ITS ---
WS: [id number] DOUBLE CONTRAST UPPER GI EXAMINATION HISTORY: GERD COMPARISON: 11/07/2006 FLUOROSCOPY TIME: 3min [id number] minutes. Barium swallowed without difficulty. Mild tortuosity and tertiary contractions throughout the mid to distal esophagus. Moderate size hiatal hernia was evident throughout majority of this examination. No reflux was demonstrated. Barium filled the stomach without difficulty. No filling defects. Slight delay in emptying of the sto mach. No ulcerations are identified. Proximal small bowel is normal size. IA/IA upper GI series [id number] IMPRESSION: 1. Moderate-sized hiatal hernia. 2. No gastroesophageal reflux demonstrated during this examination. 3. No masses or ulcerations identified.
--- NOTE | 2022-08-05 13:30 | MR_ITS ---
WS: [id number] MRI CERVICAL SPINE NONCONTRAST HISTORY: CHRONIC NECK PAIN, neck stiffness after fall. COMPARISON: 01/26/2015 Technique: Multiplanar, multisequence noncontrast imaging of the cervical spine. Mild increase in cervical lordosis. Mild disc space narrowing and desiccation. Most significant loss of height at C5-6 which is new since 2015. 2 mm retrolisthesis of C5. There is a very small amount of edema along the posterior C5 endplate. There is also very minimal amount of marrow edema within the C4 and C5 through LEFT articular facets. Signal within the cervical cord is normal. Visualized posterior fossa is unremarkable. Craniocervical junction, C1 and C2 relationship, odontoid process and soft tissues are normal. C2-C3: Normal. C3-C4: Mild annular disc bulge with a central disc protrusion and bilateral facet arthritis. Mild will tral stenosis due to the facet disease and disc disease. Small amount of edema in the RIGHT facet ervin nt. C4-C5: Mild annular disc bulging with a LEFT foraminal disc protrusion. Mild bilateral facet arthriti s and a small amount of fluid LEFT facet joint. Mild central and LEFT foraminal narrowing. C5-C6: Diffuse annular disc bulging with disc osteophyte complexes centrally and in the foramina. Mod erate central and bilateral foraminal stenosis. C6-C7: Moderate-sized central disc protrusion with bilateral disc osteophyte complexes. Disc protrusi on is greatest to the LEFT of midline contacting the ventral thecal sac. Moderate central with bilate ral foraminal stenosis. C7-T1: Normal. Paraspinal soft tissue are normal. MR/MR cervical spin wo con* [id number] IMPRESSION: 1. Progression of degenerative disc protrusions and facet arthritis and stenos es since 2014. 2. Central disc protrusion at C3-4. Mild central stenosis. There is a small am ount of edema in the RIGHT facet joint. 3. Mild central and LEFT foraminal stenosis at C4-5 with a LEFT foraminal disc protrusion. 4. Moderate central and bilateral foraminal stenosis at C5-6. 5. Moderate size central disc protrusion at C6-7 with bilateral foraminal disc osteophyte complexes. Disc protrusion greatest to the LEFT of midline contact in the LEFT lateral thecal sac. Moderate central and bilateral foraminal stenos is. 6. There is a small amount of marrow edema within the C4 and C5 LEFT articular facets.
== END 2022-08-05 09:20 | disposition home or self-care (01) ==
LOC: RAD 09:21
PROVIDERS: PCP Physician Assistant; Visit Provider Physician Assistant
DX: M50.21 Other cervical disc displacement, high cervical region (principal); M48.02 Spinal stenosis, cervical region; M43.6 Torticollis; M25.78 Osteophyte, vertebrae; G89.29 Other chronic pain; K21.9 Gastro-esophageal reflux disease without esophagitis; K44.9 Diaphragmatic hernia without obstruction or gangrene
CPT/HCPCS: 72141; 74240

== ENCOUNTER 2022-08-07 12:56 | Outpatient (CLI) | payer MEDICARE, SELFPAY ==
--- NOTE | 2022-08-07 13:06 | CT_ITS ---
WS: [id number] LDCT LUNG CANCER SCREENING TECHNIQUE: Noncontrast CT of the chest with coronal and sagittal reformatted images. CLINICAL INFORMATION: HISTORY OF TOBACCO USE COMPARISON: None. DLP: 56.41 mGy.cm DIvol: Mean CTDIvol: 1.10 (mGy) All CT scans at [facility] use at least one of these dose optimization techniques: automat ed exposure control; mA and/or kV adjustment per patient size (includes targeted exams where dose is matched to clinical indication); or iterative reconstruction. FINDINGS: Normal caliber thoracic aorta. Coronary calcification. Aortic calcification. No mediastinal or hilar lymphadenopathy.A few small nodules in the LEFT fissure. Subsegmental atelectasis and fibrosis in the RIGHT middle lobe. Moderate esophageal hiatal hernia. Cirrhotic configuration to the liver. Heterogeneous low-attenuatio n change in liver dome and ashu hepatis. Recommend correlation with liver function tests. Partially visualized splenomegaly. Adrenal glands ar e normal. No axillary lymphadenopathy. Lungs well aerated. No acute pulmonary infiltrates. Subsegment al atelectasis in the lung bases. Pleural plaques in the RIGHT upper lobe. CT/CT lung screening [id number] IMPRESSION: 1. Hepatomegaly with cirrhotic configuration to the liver. Nonspecific heterog eneous low-attenuation change along the ashu hepatis and liver dome. This can be further evaluated with contrast-enhanced CT abdomen pelvis. Recommend correl ation with liver function studies. 2. Moderate esophageal hiatal hernia. LUNG-RADS: 2S-Benign Appearance or Behavior with Significant Findings FOLLOW UP: 12 Month: Continue annual screening with LDCT
== END 2022-08-07 12:57 | disposition home or self-care (01) ==
LOC: RAD 13:01
PROVIDERS: PCP Physician Assistant; Visit Provider Physician Assistant
DX: Z12.2 Encounter for screening for malignant neoplasm of respiratory organs (principal); Z87.891 Personal history of nicotine dependence; R16.0 Hepatomegaly, not elsewhere classified; K44.9 Diaphragmatic hernia without obstruction or gangrene
CPT/HCPCS: 71271

== ENCOUNTER → 2022-08-20 14:27 | Outpatient (BNVA) | payer MEDICARE, MEDICAID, SELFPAY | PROVIDERS: PCP Physician Assistant; Visit Provider Nurse Practitioner Family | DX: F42.4 Excoriation (skin-picking) disorder (principal); L70.5 Acne excoriee; S20.461A Insect bite (nonvenomous) of right back wall of thorax, initial encounter; W57.XXXA Bitten or stung by nonvenomous insect and other nonvenomous arthropods, initial encounter; L57.8 Other skin changes due to chronic exposure to nonionizing radiation | CPT/HCPCS: 99214 ==

== ENCOUNTER → 2022-09-05 13:10 | Outpatient (BNVA) | payer MEDICARE, SELFPAY | PROVIDERS: PCP Physician Assistant; Referring Provider Physician Assistant; Visit Provider Orthopaedic Surgery | DX: M54.2 Cervicalgia (principal); M47.12 Other spondylosis with myelopathy, cervical region | CPT/HCPCS: 72050; 99204 ==

== ENCOUNTER → 2022-10-29 10:15 | Outpatient (BNVA) | payer MEDICARE, MEDICAID, SELFPAY | PROVIDERS: PCP Physician Assistant; Visit Provider Anesthesiology Pain Medicine | DX: M47.12 Other spondylosis with myelopathy, cervical region; M47.812 Spondylosis without myelopathy or radiculopathy, cervical region; M47.22 Other spondylosis with radiculopathy, cervical region | CPT/HCPCS: 99204 ==

== ENCOUNTER 2023-01-06 14:32 | Inpatient (IN) | payer MEDICARE, MEDICAID, SELFPAY ==
[2023-01-06] VITALS (8 sets, daily range): BP systolic 100–118; BP diastolic 62–68; PULSE 74–80; RESP 16–18; TEMP 36.3–36.4; O2SAT 90–99; BMI 24.5
--- NOTE | 2023-01-06 14:39 | XR_ITS ---
WS: [id number] Exam: XR hip LT 2-3V wo/w pel* [id number] Date/Time of Exam: 01/06/2023 2:42 PM Reason For Exam: fall There is a nondisplaced intertrochanteric fracture of the LEFT hip. No other fractures are noted. Mil d DJD of the joint compartment. Normal soft tissues. IMPRESSION: 1. Nondisplaced intertrochanteric fracture of the LEFT hip.
--- NOTE | 2023-01-06 14:39 | XR_ITS ---
WS: [id number] Exam: XR chest 1V portable [id number] Date/Time of Exam: 01/06/2023 2:42 PM Reason For Exam: fall Comparison 06/25/2021. The lungs are fully inflated and clear. Chronic interstitial changes in the lower lung zones. Normal cardiomediastinal silhouette. There may be a hiatal hernia. Bony structures are intact. IMPRESSION: 1. No acute cardiopulmonary finding. Chronic interstitial changes in the bilateral lung bases.
--- NOTE | 2023-01-06 14:42 | W.ED.FALL ---
HPI - Fall General: Chief Complaint: Fall Stated Complaint: fall Time Seen by Provider: 01/06/23 14:33 Source: patient and EMS Mode of arrival: EMS Limitations: no limitations History of Present Illness: 67-year-old female states that she had tripped and fell at her home. She states that she had landed on her left hip she had severe hip pain since has not been able ambulate has pain with any type of movement. She denies any other injuries from her fall she denies hitting her head denies any neck pain. Associated symptoms-after fall: Denies abdominal pain, chest pain, headache(s) or neck pain Review of Systems Const: Denies: fever(s) or chills Eyes: Denies: blurry vision or eye discomfort ENMT: Denies: throat pain or dental pain Card: Denies: chest pain Resp: Denies: dyspnea GI: Denies: abdominal pain, nausea, vomiting or diarrhea : Denies: dysuria Musc: Reports: extremity pain; Denies: neck pain or back pain Skin/Breast: Denies: rash Neuro: Denies: headache(s) PFSH ED PFSH: Medical History Arthritis of carpometacarpal (CMC) joint of right thumb Depression, major, recurrent, moderate Memory impairment Psychiatric care Social History Smoking and tobacco/nicotine status: current every day tobacco/nicotine user cigarettes Packs smoked per day: 0.25 Years cigarettes smoked: 41 Quit status (tobacco/nicotine): has tried quititng Number of times tried to quit tobacco: 1 Second hand smoke exposure: Yes Physical Exam Const: COMMON NORMALS: no acute distress, patient oriented x3 and healthy appearing HENMT: COMMON NORMALS: normocephalic and atraumatic HEAD & SCALP: normocephalic and atraumatic Eye: COMMON NORMALS: Equal, round and reactive pupils present and EOMs intact bilaterally PUPIL: Yes Equal, round and reactive pupils present Neck/C-Spine: COMMON NORMALS: full ROM and supple CERVICAL SPINE: Yes cervical ROM normal, No pain with cervical ROM and No Cervical spine tenderness Chest: COMMONS NORMALS: normal inspection of the chest and normal palpation of entire chest wall Resp: COMMON NORMALS: normal respiratory effort, No retractions, No use of accessory muscles and clear to auscultation bilaterally AUSCULTATION: clear to auscultation bilaterally Cardio: COMMON NORMALS: regular rate, regular rhythm and No murmurs present (Cardio) RATE: regular rate RHYTHM: regular rhythm GI: COMMON NORMALS: Normal to inspection, nondistended, normoactive bowel sounds present, Soft to palpation, non-tender and no masses PALPATION: Yes Soft to palpation Extremity: NARRATIVE EXTREMITY EXAM: Tenderness over left hip distal pulses sensation intact Neuro: COMMON NORMALS: patient oriented x3, moves all extremities and no focal motor deficits Psych: COMMON NORMALS: mental status grossly normal, Normal thought process present and cooperative THOUGHT PROCESS: Normal thought process present Skin: COMMON NORMALS: no rashes or lesions noted and no wounds GENERAL SKIN EXAM: no rashes or lesions noted Course Vital Signs: Vital signs: Vital Signs Temperature 97.4 F L 01/06/23 14:34 Pulse Rate 74 01/06/23 14:34 Respiratory Rate 18 01/06/23 14:34 Blood Pressure 118/68 01/06/23 14:34 Pulse Oximetry 95 01/06/23 14:34 Oxygen Delivery Me thod Room Air 01/06/23 14:34 MDM - Fall Medical Decision Making Patient presents here with a left hip fracture from a fall spoke to hospitalist along with orthopedics will admit Medical Records I reviewed the patient's medical records. Lab Data I reviewed the patient's lab results. 01/06/23 14:16 01/06/23 14:16 Laboratory Results WBC 6.15 10^3/uL (3.29-11.43) 01/06/23 14:16 RBC 4.75 10^6/uL (3.85-5.65) 01/06/23 14:16 Hgb 14.10 g/dL (11.27-16.99) 01/06/23 14:16 Hct 43.8 % (36-47) 01/06/23 14:16 MCV 92.2 fl (85-98) 01/06/23 14:16 MCH 29.7 pg (27-33) 01/06/23 14:16 MCHC 32.2 g/dL (30-55) 01/06/23 14:16 RDW 12.7 % (12.1-15.1) 01/06/23 14:16 Plt Count 151 10^3/cmm (157-399) L 01/06/23 14:16 MPV 10.9 fL (7.4-10.4) H 01/06/23 14:16 Neut % (Auto) 59.9 % 01/06/23 14:16 Lymph % (Auto) 31.7 % 01/06/23 14:16 Meade % (Auto) 5.7 % 01/06/23 14:16 Eos % (Auto) 1.6 % 01/06/23 14:16 Baso % (Auto) 0.8 % 01/06/23 14:16 Neut # (Auto) 3.68 10^3/uL (1.8-7.7) 01/06/23 14:16 Lymph # (Auto) 2.0 10^3/uL (0.8-4.8) 01/06/23 14:16 Meade # (Auto) 0.4 10^3/uL (0.2-0.9) 01/06/23 14:16 Eos # (Auto) 0.1 10^3/uL (0.0-0.8) 01/06/23 14:16 Baso # (Auto) 0.1 10^3/uL (0.0-0.1) 01/06/23 14:16 Nucleated RBC % (auto) 0 % 01/06/23 14:16 Nucleated RBCs # 0.0 /100WBC 01/06/23 14:16 XR interpretation done by ED provider, pending radiology final review Discharge Plan Discharge Patient Disposition: Admitted As Inpatient Clinical Impression: Closed fracture of left hip Condition: Stable Prescriptions: No Action multivitamin Tablet 1 tab PO DAILY albuterol sulfate 90 mcg/actuation HFA aerosol inhaler 2 inh INHALATION DAILY propranolol 40 mg tablet 20 mg PO BID PRN (Reason: Headache) lidocaine 5 % adhesive patch,medicated 1 patch TOPICAL DAILY ascorbic acid (vitamin C) 500 mg capsule 500 mg PO DAILY docusate sodium [Colace] 100 mg capsule 200 mg PO BID bisacodyl 5 mg tablet 10 mg PO DAILY meloxicam 15 mg tablet 15 mg PO DAILY entecavir 0.5 mg tablet 0.5 mg PO DAILY Qty: 90 3RF omeprazole 40 mg capsule,delayed release(DR/EC) 40 mg PO DAILY Janumet 50-1,000 mg tablet 1 tab PO DAILY aripiprazole 15 mg tablet 15 mg PO .q hs Qty: 30 1RF Rx Instructions: Take one tablet daily at bedtime; stop 10 mg dose memantine [Namenda] 10 mg tablet 10 mg PO BID Qty: 60 1RF Rx Instructions: take one tablet by mouth every morning and at bedtime fluoxetine 40 mg capsule 40 mg PO QAM Qty: 30 1RF Rx Instructions: Take one capsule by mouth every morning mupirocin 2 % ointment 1 applic topical BID PRN (Reason: sores) Qty: 15 0RF Rx Instructions: Apply to open areas until healed triamcinolone acetonide 0.1 % ointment 1 applic topical BID Qty: 80 0RF Rx Instructions: Apply to affected areas on arms and legs no more than 2 weeks per month. Not for face sucralfate 1 gram tablet 1 g PO BID Referrals: Deanna Young PA [Primary Care Provider] - Coding Level of Care Code ED Senior Licensing Manager for Daniela Guadalupe
[2023-01-06 15:02] LABS: Basophils # 0.1 10^3/uL (0.0-0.1); Basophils % 0.8 %; Eosinophils # 0.1 10^3/uL (0.0-0.8); Eosinophils % 1.6 %; Hematocrit 43.8 % (36-47); Lymphocytes % 31.7 %; Mean Corpuscular HGB Conc 32.2 g/dL (30-55); Mean Corpuscular Hemoglobin 29.7 pg (27-33); Mean Corpuscular Volume 92.2 fl (85-98); Mean Platelet Volume 10.9 fL (7.4-10.4); Monocytes # 0.4 10^3/uL (0.2-0.9); Monocytes % 5.7 %; Neutrophils # 3.68 10^3/uL (1.8-7.7); Neutrophils % 59.9 %; Nucleated Red Blood Cells % 0 %; Platelet Count 151 10^3/cmm (157-399); Red Blood Count 4.75 10^6/uL (3.85-5.65); Red Cell Distribution Width 12.7 % (12.1-15.1); White Blood Count 6.15 10^3/uL (3.29-11.43)
[2023-01-06] MEDS: ondansetron 2 mg/ML SDV 2 mL 4 MG IVP (15:03)
[2023-01-06] MEDS: HYDROmorphone 1 mg/mL INJ 1 mL IVP (15:05)
[2023-01-06 15:13] LABS: INR 0.86 (0.8-1.2)
--- NOTE | 2023-01-06 15:17 | ECG_ITS ---
[facility] Test Date: 2023-01-06 Pat Name: Mabel Martínez Department: Room: 257 Gender: Female Payroll Lead: : 1955 Requested By: Neli Clarke Order Number: [id number] Jose Manuel MD: Joy Cuevas M.D. Measurements Intervals [place] Rate: 72 P: 36 CA: 133 QRS: 40 QRSD: 77 T: 57 QT: 396 QTc: 434 Interpretive Statements SINUS RHYTHM Compared to ECG 05/30/2018 10:55:26 Short CA interval no longer present Electronically Signed On 01-06-2023 17:44:36 CDT by Joy Cuevas M.D. [id number]
[2023-01-06 15:18] LABS: Alanine Aminotransferase 27 U/L (0-33); Albumin Level 4.4 g/dL (3.5-5.2); Alkaline Phosphatase 162 U/L (35-105); Anion Gap 14.7 (5-19); Aspartate Amino Transferase 31 U/L (0-32); Blood Urea Nitrogen 23 mg/dL (8-23); Calcium 10.1 mg/dL (8.5-10.5); Carbon Dioxide 26 mmol/L (22-29); Chloride 104 mmol/L (98-107); Globulin 3.2 g/dL (1.3-4.6); Glomerular Filtration Rate 44.9 mL/min (90-130); Glucose 130 mg/dL (65-115); Osmolality Calculated 295 mOsm/kg (285-295); Potassium 4.7 mmol/L (3.5-5.1); Sodium 140 mmol/L (136-145); Total Bilirubin 0.3 mg/dL (0.15-1.2); Total Protein 7.6 g/dL (6.6-8.7)
--- NOTE | 2023-01-06 15:22 | PM.HP ---
Providers/Chief Complaint Admitting Physician: Jin Madrigal MD Primary Care Provider: Deanna Young Chief Complaint: fall History of Present Illness Mabel Martínez is a 67 year old female who presented after sustaining a fall, stating that today when she was attending a call from behavioral health clinic she stepped out on the porch and fell which she is attributing to loss of balance she did not experience any syncopal event chest pain shortness of breath recent diarrhea or presyncopal events in the ER she was diagnosed with hip fracture, Dr. Carlisle consulted. She is not on any anticoagulating agent Review of Systems Const: Denies: fever(s) Eyes: Denies: change in vision ENMT: Denies: throat pain Card: Denies: chest pain Resp: Denies: dyspnea GI: Denies: abdominal pain : Denies: flank pain Medications/Allergies Home Medications Medication Instructions Recorded Confirmed Last Taken Type albuterol sulfate 90 mcg/actuation 2 inh inhalation DAILY 03/22/19 01/06/23 01/06/23 History aerosol inhaler ascorbic acid (vitamin C) 500 mg 500 mg PO QPM 03/22/19 01/06/23 01/05/23 History capsule bisacodyl 5 mg tablet 10 mg PO QAM 03/22/19 01/06/23 01/06/23 History docusate sodium 100 mg capsule 200 mg PO BID 03/22/19 01/06/23 01/06/23 History (Colace) lidocaine 5 % topical patch 1 patch topical DAILY 03/22/19 01/06/23 01/06/23 History meloxicam 15 mg tablet 15 mg PO QPM 03/22/19 01/06/23 01/05/23 History multivitamin 1 tab PO QAM 03/22/19 01/06/23 01/06/23 History propranolol 40 mg tablet 20 mg PO BID PRN Headache 02/22/21 01/06/23 01/06/23 History entecavir 0.5 mg tablet 0.5 mg PO DAILY #90 tabs 10/29/21 01/06/23 01/06/23 Rx mupirocin 2 % topical ointment 1 applic topical BID PRN sores #15 01/07/22 01/06/23 Unknown Rx grams omeprazole 40 mg capsule,delayed 40 mg PO BID 08/06/22 01/06/23 01/06/23 History release sucralfate 1 gram tablet 1 g PO BID 10/07/22 01/06/23 01/06/23 History fluoxetine 40 mg capsule 40 mg PO QAM #30 caps 01/02/23 01/06/23 01/06/23 Rx memantine 10 mg tablet (Namenda) 10 mg PO BID #60 tabs 01/02/23 01/06/23 01/06/23 Rx sitagliptin phosphate 50 1 tab PO QAM 01/02/23 01/06/23 01/06/23 History mg-metformin 1,000 mg tablet (Janumet) aripiprazole 15 mg tablet 15 mg PO BEDTIME 01/06/23 01/06/23 Unknown History triamcinolone acetonide 0.1 % See Rx Instructions .Route .COMPLEX 01/06/23 01/06/23 Unknown History topical ointment Allergies Allergy/AdvReac Type Severity Reaction Status Date / Time Opioids - Morphine Analogues Allergy Unknown Unknown Verified 01/06/23 14:43 Sulfa (Sulfonamide Allergy rash Verified 01/06/23 14:43 Antibiotics) tiotropium Allergy Unknown Verified 01/06/23 14:43 [From Spiriva with HandiHaler] trazodone Allergy hypersomnia Verified 01/06/23 14:43 PFSH Acute PFSH: Medical History Arthritis of carpometacarpal (CMC) joint of right thumb Depression, major, recurrent, moderate Memory impairment Psychiatric care Social History Smoking and tobacco/nicotine status: current every day tobacco/nicotine user cigarettes Packs smoked per day: 0.25 Years cigarettes smoked: 41 Quit status (tobacco/nicotine): has tried quititng Number of times tried to quit tobacco: 1 Second hand smoke exposure: Yes Vitals/I&O/Wt Last Vital Signs Temp 97.4 F L 01/06/23 14:34 Pulse 74 01/06/23 14:34 Resp 18 01/06/23 15:05 BP 118/68 01/06/23 14:34 Pulse Ox 99 01/06/23 15:05 O2 Del Method Room Air 01/06/23 14:34 Weight last 48 hrs Weight 68.946 kg Physical Exam Narrative: Extremely dehydrated Dry mucous membranes Hemodynamically stable Currently on room air Lower extremity no swelling Pleasant Family at bedside S1, S2 Abdomen soft Data 01/06/23 14:16 01/06/23 14:16 A&P Assessment and plan (1) Closed intertrochanteric fracture of left hip: Qualifiers: Encounter type: initial encounter Fracture alignment: displaced Qualified Code(s): S72.142A - Displaced intertrochanteric fracture of left femur, initial encounter for closed fracture (2) Closed fracture of left hip: (3) Cervical radiculopathy: (4) Anxiety disorder, unspecified: (5) Post-traumatic stress disorder, chronic: (6) Chronic hepatitis B: Plan Hip fracture N.p.o. Dr. Becker consulted Start IV fluids patient extremely hydrated We can hold hepatitis B treatment for today Disposition will be decided after physical therapy after surgery N.p.o. after midnight Opioids along bowel regimen DVT prophylaxis contraindicated for surgery tomorrow Robbins catheter can be placed Full code Consistent carb diet Attestations Medical Necessity Statement*: Anticipating more than 2 midnight Diagnoses Closed intertrochanteric fracture of left hip S72.142A Encounter type: initial encounter Fracture alignment: displaced Closed fracture of left hip S72.002A Cervical radiculopathy M54.12 Anxiety disorder, unspecified F41.9 Post-traumatic stress disorder, chronic F43.12 Chronic hepatitis B B18.1
--- NOTE | 2023-01-06 17:26 | P.CONIM_ITS ---
Providers/Reason For Consult Consulting Physician/Specialty*: Leann Carlisle MD Reason for Consult*: Left intertrochanteric hip fracture Requesting Physician: Dr. Neli Clarke Attending Physician: Jin Madrigal MD Primary Care Provider: Deanna Young History of Present Illness History of Present Illness Mabel Martínez is a 67 year old female who was in her usual state of health when she tripped and fell in her home. Reportedly, she landed on the side of her left hip and had severe hip pain following that. She was unable to ambulate. She denied any other injuries from her fall. She was admitted to the [facility] list team for optimization and subsequent surgery. We will plan surgical intervention tomorrow. Preoperatively, the patient is seen in her room. Discussion was undertaken regarding the surgical procedure including risk complications and planned procedure. Patient understands and agrees to surgery. Review of Systems Const: Denies: fever(s) or chills Eyes: Denies: blurry vision, photophobia or eye discomfort ENMT: Denies: throat pain, enlarged tonsils or dental pain Card: Denies: chest pain Resp: Denies: dyspnea GI: Denies: abdominal pain, nausea, vomiting or diarrhea : Denies: dysuria Musc: Reports: extremity pain; Denies: neck pain or back pain Skin/Breast: Denies: rash Neuro: Denies: headache(s) Medications/Allergies Home Medications Medication Instructions Recorded Confirmed Last Taken Type albuterol sulfate 90 mcg/actuation 2 inh inhalation DAILY 03/22/19 01/06/23 01/06/23 History aerosol inhaler ascorbic acid (vitamin C) 500 mg 500 mg PO QPM 03/22/19 01/06/23 01/05/23 History capsule bisacodyl 5 mg tablet 10 mg PO QAM 03/22/19 01/06/23 01/06/23 History docusate sodium 100 mg capsule 200 mg PO BID 03/22/19 01/06/23 01/06/23 History (Colace) lidocaine 5 % topical patch 1 patch topical DAILY 03/22/19 01/06/23 01/06/23 History meloxicam 15 mg tablet 15 mg PO QPM 03/22/19 01/06/23 01/05/23 History multivitamin 1 tab PO QAM 03/22/19 01/06/23 01/06/23 History propranolol 40 mg tablet 20 mg PO BID PRN Headache 02/22/21 01/06/23 01/06/23 History entecavir 0.5 mg tablet 0.5 mg PO DAILY #90 tabs 10/29/21 01/06/23 01/06/23 Rx mupirocin 2 % topical ointment 1 applic topical BID PRN sores #15 01/07/22 01/06/23 Unknown Rx grams omeprazole 40 mg capsule,delayed 40 mg PO BID 08/06/22 01/06/23 01/06/23 History release sucralfate 1 gram tablet 1 g PO BID 10/07/22 01/06/23 01/06/23 History fluoxetine 40 mg capsule 40 mg PO QAM #30 caps 01/02/23 01/06/23 01/06/23 Rx memantine 10 mg tablet (Namenda) 10 mg PO BID #60 tabs 01/02/23 01/06/23 01/06/23 Rx sitagliptin phosphate 50 1 tab PO QAM 01/02/23 01/06/23 01/06/23 History mg-metformin 1,000 mg tablet (Janumet) aripiprazole 15 mg tablet 15 mg PO BEDTIME 01/06/23 01/06/23 Unknown History triamcinolone acetonide 0.1 % See Rx Instructions .Route .COMPLEX 01/06/23 01/06/23 Unknown History topical ointment Allergies Allergy/AdvReac Type Severity Reaction Status Date / Time Opioids - Morphine Analogues Allergy Unknown Unknown Verified 01/06/23 14:43 Sulfa (Sulfonamide Allergy rash Verified 01/06/23 14:43 Antibiotics) tiotropium Allergy Unknown Verified 01/06/23 14:43 [From Spiriva with HandiHaler] trazodone Allergy hypersomnia Verified 01/06/23 14:43 PFSH Acute PFSH: Medical History Arthritis of carpometacarpal (CMC) joint of right thumb Depression, major, recurrent, moderate Memory impairment Psychiatric care Social History Smoking and tobacco/nicotine status: current every day tobacco/nicotine user cigarettes Packs smoked per day: 0.25 Years cigarettes smoked: 41 Quit status (tobacco/nicotine): has tried quititng Number of times tried to quit tobacco: 1 Second hand smoke exposure: Yes Vitals/I&O/Wt Last Vital Signs Temp 97.4 F L 01/06/23 14:34 Pulse 76 01/06/23 16:11 Resp 16 01/06/23 16:11 BP 118/68 01/06/23 16:11 Pulse Ox 93 01/06/23 16:11 O2 Del Method Room Air 01/06/23 16:11 Weight last 48 hrs Weight 152 lb Physical Exam Const: COMMON NORMALS: no acute distress, average body habitus, patient oriented x3 and alert GENERAL APPEARANCE: cooperative and comfortable ORIE NTATION/CONSCIOUSNESS: Yes awake HENMT: HEAD & SCALP: contusion (The patient had slight facial trauma with her fall.) Eye: GENERAL EYE: appearance normal, both eyes and all related structures Chest: COMMONS NORMALS: normal inspection of the chest Resp: COMMON NORMALS: normal respiratory effort EFFORT & INSPECTION: Yes able to speak in complete sentences and Yes symmetric chest movement Extremity: LEFT LOWER EXTREMITY: Yes hip joint (No abrasion or significant ecchymosis.) Left hip: Yes ROM (Not evaluated secondary to fracture), Yes neurovascular exam (Intact distally) and Yes other (Patient is in Teran's traction secondary to pain) Neuro: COMMON NORMALS: patient oriented x3 SENSORIUM/ORIENTATION: Yes alert Psych: COMMON NORMALS: mental status grossly normal APPEARANCE: Yes grossly normal ATTITUDE: Yes calm and Yes engaged ATTENTION/CONCENTRATION: Yes attention grossly intact Skin: COMMON NORMALS: no rashes or lesions noted GENERAL SKIN EXAM: no rashes or lesions noted Data 01/07/23 04:35 01/07/23 04:35 Xray Ortho: My impression: X-rays were obtained here today in the emergency department. These were personally interpreted by me. The x-ray series demonstrates a long oblique intertrochanteric hip fracture with some obliquity. There is minimal displacement. A&P Assessment and plan (1) Closed intertrochanteric fracture of left hip: Patient was admitted today through the emergency department with diagnosis of a slightly displaced intertrochanteric left hip fracture. According to her history, she is healthy and should be able to be optimized for surgery tomorrow. Plans are made for surgical intervention. Patient is seen in her room the day of surgery. Risks and complications of the as well as the procedure planned are discussed in detail. Patient is consented for the surgical procedure and agrees to proceeding. Qualifiers: Encounter type: initial encounter Fracture alignment: displaced Qualified Code(s): S72.142A - Displaced intertrochanteric fracture of left femur, initial encounter for closed fracture Consult Attestations Medical Necessity Statement: Treatment of intertrochanteric hip fracture Coding Level of Care Code Acute Code for [facility] Diagnoses Closed intertrochanteric fracture of left hip S72.142A Encounter type: initial encounter Fracture alignment: displaced
[2023-01-06] MEDS: oxyCODONE-APAP 10-325 mg Tablet 1 TAB PO (17:56)
[2023-01-06] MEDS: sodium chloride 0.9% 1,000 ML 75 ML IV (17:57)
[2023-01-06] MEDS: morphine IR 15 mg Tablet PO (19:36)
[2023-01-06 19:44] LABS: Estmated Average Glucose 131; Hemoglobin A1C 6.2 % (4.0-6.0)
[2023-01-06 20:03] LABS: Vitamin B12 698 pg/mL (232-1245)
[2023-01-06 20:05] LABS: Glucose Point of Care 109 mg/dL (70-110)
[2023-01-07] VITALS (23 sets, daily range): BP systolic 92–161; BP diastolic 62–97; PULSE 72–98; RESP 13–18; TEMP 36.1–37; O2SAT 86–99
--- NOTE | 2023-01-07 04:11 | PC.NURSE ---
Patient asked if she is allergic to opioids, as listed in her chart. Patient states not that I know of.
[2023-01-07 05:06] LABS: Basophils % 0.5 %; Eosinophils # 0.1 10^3/uL (0.0-0.8); Eosinophils % 1.4 %; Lymphocytes # 1.5 10^3/uL (0.8-4.8); Lymphocytes % 34.2 %; Mean Corpuscular HGB Conc 31.1 g/dL (30-55); Mean Corpuscular Hemoglobin 29.4 pg (27-33); Mean Corpuscular Volume 94.5 fl (85-98); Mean Platelet Volume 10.5 fL (7.4-10.4); Monocytes # 0.4 10^3/uL (0.2-0.9); Monocytes % 8.3 %; Neutrophils # 2.35 10^3/uL (1.8-7.7); Neutrophils % 55.4 %; Nucleated Red Blood Cells % 0 %; Platelet Count 109 10^3/cmm (157-399); Red Blood Count 3.81 10^6/uL (3.85-5.65); Red Cell Distribution Width 12.8 % (12.1-15.1); White Blood Count 4.24 10^3/uL (3.29-11.43)
[2023-01-07 05:24] LABS: Anion Gap 8.6 (5-19); Blood Urea Nitrogen 24 mg/dL (8-23); Carbon Dioxide 30 mmol/L (22-29); Chloride 105 mmol/L (98-107); Glucose 117 mg/dL (65-115); Magnesium 1.9 mg/dL (1.7-2.3); Osmolality Calculated 293 mOsm/kg (285-295); Potassium 4.6 mmol/L (3.5-5.1); Sodium 139 mmol/L (136-145)
[2023-01-07] MEDS: sodium chloride 0.9% 1,000 ML 75 ML IV ×2 (05:30→22:19)
[2023-01-07] MEDS: ondansetron 2 mg/ML SDV 2 mL 4 MG IVP (05:30)
[2023-01-07] MEDS: oxyCODONE-APAP 10-325 mg Tablet 1 TAB PO (05:30)
[2023-01-07 06:18] LABS: Glucose Point of Care 108 mg/dL (70-110)
[2023-01-07] MEDS: lactated ringers 1,000 ML 999 ML IV (08:23)
--- NOTE | 2023-01-07 08:45 | PC.CHAP ---
Pastoral Care Encounter/Spiritual Assessment Type of Contact [] Declined field agent visit [] Patient/Family/Request visit [] Outpatient visit [] Follow-up visit [] Physician referral [] Code/Alert [] Routine visit [] Staff referral [] Actively dying [] Patient sleeping [] Family support [] [] Out of room [] Palliative care [] [x] Receiving care in room [] Pre-surgical visit [] Trauma [] Long length of stay [] ICU visit [] Other: Relational/Emotional Strength [] Patient feels connected with others/family/visitors/staff [] Distress [] Loneliness/isolation [] Abandonment Spirituality of Patient [] Person of [place] [] Attends Yarsani of their [place] [] Believes in Prayer [] Reads Bible or Scientologist materials [] There are Spiritual issues to be addressed Nursing Aide Interventions [] Prayer [] Active listening [] Non-anxious presence [] Spiritual/emotional support [] Crisis/trauma care [] Spiritual counseling [] Bereavement support [] Provided bereavement packet [] Provided Bible/devotional materials [] Provided toy/stuffed animal, coloring book to patient or family member [] Provided Communion [] Anointing/[place] [] Salvation [] Completed spiritual assessment [] Other: Impact on Illness or Injury [] Angry [] Fearful [] Anxious [] Often cries [] Exhaustion [] Unable to work [] Unable to attend [employer] [] Unable to walk/stand [] Unable to read [] Unable to drive [] Unable to eat/drink [] Unable to sleep [] Unable to be with family [] Patient intubated [] Other: Summary Time spent with patient
[2023-01-07] MEDS: morphine IR 15 mg Tablet PO (10:51)
--- NOTE | 2023-01-07 11:44 | PM.PN ---
Subjective Subjective: going for surgery today We will start her anxiolytics and antipsychotics Vitals/I&O/Wt Last Vital Signs Temp 98.6 F 01/07/23 08:00 Pulse 80 01/07/23 08:00 Resp 16 01/07/23 10:51 BP 103/67 01/07/23 08:00 Pulse Ox 93 01/07/23 10:51 O2 Del Method Nasal Cannula 01/07/23 08:00 O2 Flow Rate 2 01/07/23 04:00 01/06/23 01/07/23 01/07/23 22:59 06:59 14:59 Intake Total 480 / 480 866.25 / 1346.25 1000 / 1000 Output Total 550 / 550 100 / 100 Balance 480 / 480 316.25 / 796.25 900 / 900 Weight last 48 hrs Weight 68.946 kg Physical Exam Narrative: Awake and alert Signs of dehydration Low blood pressure GCS 15 Irritable Abdomen soft Malnourished G S1, S2 Currently on room air Data 01/07/23 04:35 01/07/23 04:35 A&P Assessment and plan (1) Closed intertrochanteric fracture of left hip: Qualifiers: Encounter type: initial encounter Fracture alignment: displaced Qualified Code(s): S72.142A - Displaced intertrochanteric fracture of left femur, initial encounter for closed fracture (2) Closed fracture of left hip: (3) Cervical radiculopathy: (4) Memory impairment: (5) Chronic hepatitis B: (6) Depression, major, recurrent, moderate: (7) Anxiety disorder, unspecified: Plan Patient going for hip intervention today with Dr. Becker [email or web address] Clinically very dehydrated Continue IV fluids I will resume her anxiolytics and antipsychotics She has significant history of anxiety PTSD Continue morphine with bowel regimen Start DVT prophylaxis after surgery We will request PT after her surgery today Low blood pressure, will give 1 L bolus of LR Depending on PT disposition plan will be decided Attestations Medical Necessity Statement*: Continue medical management Diagnoses Closed intertrochanteric fracture of left hip S72.142A Encounter type: initial encounter Fracture alignment: displaced Closed fracture of left hip S72.002A Cervical radiculopathy M54.12 Memory impairment R41.3 Chronic hepatitis B B18.1 Depression, major, recurrent, moderate F33.1 Anxiety disorder, unspecified F41.9
[2023-01-07 12:17] LABS: Glucose Point of Care 96 mg/dL (70-110)
[2023-01-07 16:39] LABS: Glucose Point of Care 92 mg/dL (70-110)
[2023-01-07] MEDS: gabapentin 300 mg Capsule PO (17:55)
[2023-01-07] MEDS: sodium chloride 0.9% 1,000 ML 30 ML IV (17:55)
[2023-01-07] MEDS: acetaminophen 1,000 MG/100 ML PIGGYBACK 400 MG IV (17:55)
[2023-01-07] MEDS: CELEcoxib 200 mg Capsule 400 MG PO (17:56)
--- NOTE | 2023-01-07 18:04 | P.ANESASSM_ITS ---
Pre-Anesthetic Assessment Height/Weight: Height 1.68 m Weight 68.946 kg Temp Pulse Resp BP Pulse Ox O2 Del Method O2 Flow Rate 97.7 F 84 17 140/79 92 Nasal Cannula 3 01/07/23 17:46 01/07/23 17:46 01/07/23 17:46 01/07/23 17:46 01/07/23 17:46 01/07/23 17:46 01/07/23 17:46 Operation Date: 01/07/23 17:10 Proposed Procedures p Trochanteric Femoral Nail(Left) - Leann Carlisle MD Familial anesthetic complications: none Was Beta Brissa taken within 24 hours: Yes Was Clonidine taken within 24 hours: N/A Last intake: Intake Last Liquid Date 01/06/23 Last Liquid Time 22:00 Last Solid Date 01/06/23 Last Solid Time 22:00 Social Tobacco and No alcohol Exam alert, oriented x 3 and regular rate & rhythm Airway Submandibular: within normal limits Cervical ROM: within normal limits Mallampati: Class II Dentition: chipped Pulmonary Chronic Obstructive Pulmonary Disease CV/HEM Hypertension Hepatic Hepatitis (B) GI Gastroesophageal Reflux Disease twisted esophagus Musc/skel Osteoarthritis/DJD Neuropsych Anxiety and Depression psych issues Anesthetic Plan ASA status: 3 Anesthesia: General Medications/Allergies Home Medications Medication Instructions Recorded Confirmed Last Taken Type albuterol sulfate 90 mcg/actuation 2 inh inhalation DAILY 03/22/19 01/06/23 01/06/23 History aerosol inhaler ascorbic acid (vitamin C) 500 mg 500 mg PO QPM 03/22/19 01/06/23 01/05/23 History capsule bisacodyl 5 mg tablet 10 mg PO QAM 03/22/19 01/06/23 01/06/23 History docusate sodium 100 mg capsule 200 mg PO BID 03/22/19 01/06/23 01/06/23 History (Colace) lidocaine 5 % topical patch 1 patch topical DAILY 03/22/19 01/06/23 01/06/23 History meloxicam 15 mg tablet 15 mg PO QPM 03/22/19 01/06/23 01/05/23 History multivitamin 1 tab PO QAM 03/22/19 01/06/23 01/06/23 History propranolol 40 mg tablet 20 mg PO BID PRN Headache 02/22/21 01/06/23 01/06/23 History entecavir 0.5 mg tablet 0.5 mg PO DAILY #90 tabs 10/29/21 01/06/23 01/06/23 Rx mupirocin 2 % topical ointment 1 applic topical BID PRN sores #15 01/07/22 01/06/23 Unknown Rx grams omeprazole 40 mg capsule,delayed 40 mg PO BID 08/06/22 01/06/23 01/06/23 History release sucralfate 1 gram tablet 1 g PO BID 10/07/22 01/06/23 01/06/23 History fluoxetine 40 mg capsule 40 mg PO QAM #30 caps 01/02/23 01/06/23 01/06/23 Rx memantine 10 mg tablet (Namenda) 10 mg PO BID #60 tabs 01/02/23 01/06/23 01/06/23 Rx sitagliptin phosphate 50 1 tab PO QAM 01/02/23 01/06/23 01/06/23 History mg-metformin 1,000 mg tablet (Janumet) aripiprazole 15 mg tablet 15 mg PO BEDTIME 01/06/23 01/06/23 Unknown History triamcinolone acetonide 0.1 % See Rx Instructions .Route .COMPLEX 01/06/23 01/06/23 Unknown History topical ointment Allergies Allergy/AdvReac Type Severity Reaction Status Date / Time Opioids - Morphine Analogues Allergy Unknown Unknown Verified 01/06/23 14:43 Sulfa (Sulfonamide Allergy rash Verified 01/06/23 14:43 Antibiotics) tiotropium Allergy Unknown Verified 01/06/23 14:43 [From Spiriva with HandiHaler] trazodone Allergy hypersomnia Verified 01/06/23 14:43 Current Medications Generic Name Dose Route Start Last Admin Trade Name Freq PRN Reason Stop Dose Admin Sodium Chloride 1,000 mls @ 75 mls/hr 01/06/23 17:12 01/07/23 05:30 Sodium Chloride 0.9% IV 75 mls/hr .[id number] BOOGIE Administration Sodium Chloride 1,000 mls @ 30 mls/hr 01/07/23 17:45 01/07/23 17:55 Sodium Chloride 0.9% IV 01/08/23 17:44 30 mls/hr .Q24H BOOGIE Administration Insulin Human Lispro 0 unit 01/06/23 18:00 01/07/23 17:02 Insulin Lispro 100 Unit/1 Ml SUBCUT Not Given TIDWM BOOGIE Protocol Morphine Sulfate 15 mg 01/06/23 17:12 01/07/23 10:51 Morphine Ir 15 Mg Tablet PO 15 mg Q6H PRN Administration MODERATE PAIN Ondansetron HCl 4 mg 01/06/23 17:12 01/07/23 05:30 Ondansetron 2 Mg/Ml Sdv 2 Ml IVP 4 mg Q6H PRN Administration NAUSEA AND VOMITING Oxycodone/Acetaminophen 1 tab 01/06/23 17:12 01/07/23 05:30 Oxycodone-Apap 10-325 Mg Tablet PO 1 tab Q6H PRN Administration MODERATE PAIN Senna/Docusate Sodium 1 tab 01/07/23 09:00 01/07/23 09:21 Sennosides-Docusate Tablet PO Not Given DAILY [facility] PFSH Anesthesia Medical History Arthritis of carpometacarpal (CMC) joint of right thumb Depression, major, recurrent, moderate Memory impairment Psychiatric care Social History Smoking and tobacco/nicotine status: current every day tobacco/nicotine user cigarettes Packs smoked per day: 0.25 Years cigarettes smoked: 41 Quit status (tobacco/nicotine): has tried quititng Number of times tried to quit tobacco: 1 Second hand smoke exposure: Yes Data Anesthesia 01/07/23 04:35 01/07/23 04:35 Short CBC 01/06/23 01/07/23 Range/Units 14:16 04:35 WBC 6.15 4.24 (3.29-11.43) 10^3/uL Hgb 14.10 11.20 L (11.27-16.99) g/dL Hct 43.8 36.0 (36-47) % MCV 92.2 94.5 (85-98) fl Plt Count 151 L 109 L (157-399) 10^3/cmm Neut % (Auto) 59.9 55.4 % Neut # (Auto) 3.68 2.35 (1.8-7.7) 10^3/uL BMP 01/06/23 01/07/23 14:16 04:35 Sodium 140 139 Potassium 4.7 4.6 Chloride 104 105 Carbon Dioxide 26 30 H BUN 23 24 H Creatinine 1.2 H 1.3 H Glucose 130 H 117 H Calcium 10.1 9.0 Liver Function 01/06/23 Range/Units 14:16 Total Bilirubin 0.3 (0.15-1.2) mg/dL AST 31 (0-32) U/L ALT 27 (0-33) U/L Alkaline Phosphatase 162 H (35-105) U/L Albumin 4.4 (3.5-5.2) g/dL Coags 01/06/23 14:16 PT 12.00 L INR 0.86 Cardiac Studies: No Data to Display
[2023-01-07] MEDS: HYDROmorphone 1 mg/mL INJ 1 mL 0.5 MG IVP (18:22)
[2023-01-07] MEDS: ceFAZolin 2,000 MG in sodium chloride 0.9% (plus) 50 ML 100 MG IV (18:37)
--- NOTE | 2023-01-07 18:41 | PC.NURSE ---
pt off unit in or at 1711
--- NOTE | 2023-01-07 20:13 | XR_ITS ---
WS: [id number] Exam: XR hip LT 1V wo/w pel [id number] Date/Time of Exam: 01/07/2023 8:13 PM Reason For Exam: OR PICS AP and lateral intraoperative C-arm images of the LEFT hip are submitted for evaluation. Previously noted intertrochanteric fracture of the LEFT hip has now been stabilized with a femoral ne ck screw and intramedullary amanda. Alignment appears to be satisfactory for healing.
--- NOTE | 2023-01-07 21:12 | P.OP_ITS ---
Operative Report Date of procedure: January 07, 2023 Pre-op diagnosis: Left intertrochanteric hip fracture Post-op diagnosis: Left intertrochanteric hip fracture Procedure done: Open reduction internal fixation left intertrochanteric hip fracture Implants: Anabelle gamma 3 system with a size 11 mm x 180 mm x 125 degree gamma 3 trochan teric nail, a proximal lag screw size 10.5 mm x 90 mm and a distal locking screw size 5 mm x 35 mm. Specimens removed/disposition: None Surgeon: Leann Carlisle MD Field Assistant: None Anesthesia: General (Per LMA, ASA 3) Estimated blood loss (mL): 10 IV fluids (mL): 800 Urine output (mL): 400 Complications: None Findings: Oblique intertrochanteric left hip fracture Condition: stable Disposition: PACU (Then return to floor for postoperative management) Brief History: Mabel Martínez is a 67 year old female who was in her usual state of health when she tripped and fell in her home.? Reportedly, she landed on the side of her left hip and had severe hip pain following that.? She was unable to ambulate.? She denied any other injuries from her fall.? She was admitted to the hospitalist team for optimization and subsequent surgery.? We will plan surgical intervention tomorrow.? Preoperatively, the patient is seen in her room.? Discussion was undertaken regarding the surgical procedure including risk complications and planned procedure.? Patient understands and agrees to surgery. Consents were signed and questions were answered. Procedure: Patient was brought to the operating theater. After undergoing adequate general anesthesia per LMA, ASA 3, the patient was transferred to the fracture table, positioned on the table and fluoroscopic guidance obtained throughout the surgical procedure. Prior to the commencement of the surgical procedure, a surgical pause was performed. At the time of the surgical pause, we confirmed the site and side of surgery as well as preoperative surgical markings and appropriate and timely administration of IV antibiotics, Ancef 2 g. Availability of equipment was also confirmed. Fluoroscopy was used to confirm the fracture was appropriately reduced in both AP and lateral planes. An incision was then made slightly above the greater trochanter to allow access to the greater trochanter. An awl was used to enter the greater trochanter and a guidewire was subsequently placed. Once the guidewire was confirmed to be in appropriate position in AP and lateral planes, reaming was accomplished over this to allow for the proximal diameter of the nail. Guidewire was then removed, and an 11 mm x 180 mm x 125 degree gamma 3 trochanteric nail was placed into appropriate position with positioning being confirmed in AP and lateral planes on the x-ray. It passed without difficulty. Guidewire was then passed through the jigging system into the femoral head. We wanted to be center or slightly inferior and posterior to center. Guidewire was placed into appropriate position. Once the guidewire was in appropriate position and this position was confirmed by x-ray. This was then measured and we chose a 10.5 mm x 90 mm lag screw. We reamed to allow for the lag screw to be placed. The 90 mm lag screw was then passed into the femoral head through the trochanteric nail. This was passed uneventfully and again position was confirmed in AP and lateral planes. Compression was obtained under fluoroscopic guidance. The set screw was then placed in position, tightened completely, and subsequently backed off one- quarter turn. The construct was left in position and attention was directed distally. Cannulas were again used to determine appropriate placement for the distal screw. This was placed in position without difficulty. It was measured off of the drill. The appropriate length screw was then obtained and placed in position without difficulty. Once the screw was in position, we confirmed appropriate placement of the components, and we removed the jigging system. Attention was then directed to closure. The hip was copiously irrigated with normal saline with antibiotics. Following this it was dried and closed. Tensor fascia jesse was closed proximally with 0 Vicryl in an interrupted fashion. Subcutaneous tissues were closed with 2-0 Monocryl, and the skin was closed with a continuous 3-0 Monocryl subcuticular stitch. Dermabond followed by Steri-Strips and OpSite was then placed. The patient was removed from the fracture table and returned to recovery in satisfactory condition. The patient will be discharged to the floor for postoperative rehabilitation and pain management. There were no specimens obtained. Related Problem List Diagnoses (1) Closed intertrochanteric fracture of left hip:
[2023-01-08] VITALS (16 sets, daily range): BP systolic 82–146; BP diastolic 58–83; PULSE 77–93; RESP 15–20; TEMP 36.4–36.9; O2SAT 91–96
[2023-01-08] MEDS: ceFAZolin 2,000 MG in sodium chloride 0.9% (plus) 50 ML 100 MG IV ×3 (02:31→17:39)
[2023-01-08 05:10] LABS: Basophils % 0.2 %; Lymphocytes # 0.7 10^3/uL (0.8-4.8); Lymphocytes % 15.2 %; Mean Corpuscular HGB Conc 30.8 g/dL (30-55); Mean Corpuscular Hemoglobin 29.1 pg (27-33); Mean Corpuscular Volume 94.5 fl (85-98); Mean Platelet Volume 10.1 fL (7.4-10.4); Monocytes # 0.2 10^3/uL (0.2-0.9); Monocytes % 4.8 %; Neutrophils # 3.44 10^3/uL (1.8-7.7); Neutrophils % 79.6 %; Nucleated Red Blood Cells % 0 %; Platelet Count 85 10^3/cmm (157-399); Red Blood Count 3.81 10^6/uL (3.85-5.65); Red Cell Distribution Width 12.5 % (12.1-15.1); White Blood Count 4.33 10^3/uL (3.29-11.43)
[2023-01-08 05:31] LABS: Anion Gap 13.5 (5-19); Blood Urea Nitrogen 15 mg/dL (8-23); Calcium 8.6 mg/dL (8.5-10.5); Carbon Dioxide 24 mmol/L (22-29); Chloride 107 mmol/L (98-107); Glomerular Filtration Rate 55.5 mL/min (90-130); Glucose 173 mg/dL (65-115); Osmolality Calculated 295 mOsm/kg (285-295); Potassium 4.5 mmol/L (3.5-5.1); Sodium 140 mmol/L (136-145)
[2023-01-08] MEDS: oxyCODONE-APAP 10-325 mg Tablet 1 TAB PO (06:02)
[2023-01-08 06:29] LABS: Glucose Point of Care 202 mg/dL (70-110)
--- NOTE | 2023-01-08 07:19 | ANE.PACU2 ---
Inpatient post-anesthesia follow up: Airway intact: Yes Vital signs: Temperature 98.4 F Pulse Rate 92 Respiratory Rate 16 Blood Pressure 120/70 Pulse Oximetry 92 Oxygen Delivery Me thod Nasal Cannula Oxygen Flow Rate 2 Fraction of Inspir ed Oxygen Hydration adequate: Yes Nausea and vomiting: No Pain level: 2 Mental status: Baseline
[2023-01-08] MEDS: morphine IR 15 mg Tablet PO ×2 (08:36→21:00)
[2023-01-08] MEDS: sennosides-docusate Tablet 1 TAB PO (08:37)
[2023-01-08] MEDS: CELEcoxib 200 mg Capsule PO (08:37)
[2023-01-08] MEDS: memantine 5 mg tablet 10 MG PO ×2 (08:37→17:12)
[2023-01-08] MEDS: aspirin 325 mg EC Tablet PO (08:37)
[2023-01-08] MEDS: insulin lispro 100 unit/1 mL SUBCUT ×3 (08:38→17:12)
[2023-01-08] MEDS: LORazepam 0.5 mg Tablet 0.25 MG PO (08:43)
--- NOTE | 2023-01-08 09:48 | PM.PN ---
Subjective Subjective: Patient this morning had eaten breakfast Stating that she has not worked with physical therapy yet I did tell her that depending on physical therapy evaluation we will make a further plan whether she would benefit from rehab versus home health her mother is using a walker and will be able to take care of her if she needs significant assistance Vitals/I&O/Wt Last Vital Signs Temp 97.8 F 01/08/23 08:00 Pulse 90 01/08/23 08:00 Resp 17 01/08/23 08:36 BP 123/79 01/08/23 08:00 Pulse Ox 94 01/08/23 08:00 O2 Del Method Nasal Cannula 01/08/23 08:00 O2 Flow Rate 2 01/08/23 07:40 01/07/23 01/08/23 01/08/23 22:59 06:59 14:59 Intake Total 2250.0 / 3250.0 290 / 3540.0 120 / 120 Output Total 810 / 1060 700 / 1760 Balance 1440.0 / 2190.0 -410 / 1780.0 120 / 120 Weight last 48 hrs Weight 68.946 kg Physical Exam Narrative: Signs of dehydration improving S1, S2 GCS 15 Currently on room air Abdomen soft Pleasant cooperative Short attention span Urinary Catheter Management: Robbins: Cath Placed During This Visit: yes, but has since been removed by the nurse Reason for Continuing Indwelling Catheter: Perioperative Use in Selected Surgeries Date Urinary Catheter Removed: 01/08/23 Time Urinary Catheter Discontinued: 05:56 Data 01/08/23 05:00 01/08/23 05:00 A&P Assessment and plan (1) Closed intertrochanteric fracture of left hip: Qualifiers: Encounter type: initial encounter Fracture alignment: displaced Qualified Code(s): S72.142A - Displaced intertrochanteric fracture of left femur, initial encounter for closed fracture (2) Cervical radiculopathy: (3) Closed fracture of left hip: (4) Chronic hepatitis B: (5) Depression, major, recurrent, moderate: Plan Postop day 1 No postoperative complication Depending on PT evaluation disposition plan will be made Signs of dehydration improving We may discontinue IV fluids after lunch Patient is tolerating her diet DVT prophylaxis added I will discontinue celecoxib which increases the chance of thromboembolic phenomenon Full code Attestations Medical Necessity Statement*: Continue medical management Diagnoses Closed intertrochanteric fracture of left hip S72.142A Encounter type: initial encounter Fracture alignment: displaced Cervical radiculopathy M54.12 Closed fracture of left hip S72.002A Chronic hepatitis B B18.1 Depression, major, recurrent, moderate F33.1
[2023-01-08] MEDS: enoxaparin 40 mg/0.4 mL Syringe SUBCUT (10:15)
[2023-01-08] MEDS: oxyCODONE 5 mg IR Tab/Cap PO (10:15)
--- NOTE | 2023-01-08 10:55 | PC.CHAP ---
Pastoral Care Encounter/Spiritual Assessment Type of Contact [] Declined sliver lapper visit [] Patient/Family/Request visit [] Outpatient visit [] Follow-up visit [] Physician referral [] Code/Alert [x] Routine visit [] Staff referral [] Actively dying [] Patient sleeping [] Family support [] [] Out of room [] Palliative care [] [] Receiving care in room [] Pre-surgical visit [] Trauma [] Long length of stay [] ICU visit [] Other: Relational/Emotional Strength [] Patient feels connected with others/family/visitors/staff [] Distress [] Loneliness/isolation [] Abandonment Spirituality of Patient [] Person of [place] [] Attends Congregation of their [place] [] Believes in Prayer [] Reads Bible or Buddhist materials [] There are Spiritual issues to be addressed Optic Fib[employer] Drawer Interventions [x] Prayer [] Active listening [] Non-anxious presence [] Spiritual/emotional support [] Crisis/trauma care [] Spiritual counseling [] Bereavement support [] Provided bereavement packet [] Provided Bible/devotional materials [] Provided toy/stuffed animal, coloring book to patient or family member [] Provided Communion [] Anointing/[place] [] Salvation [] Completed spiritual assessment [] Other: Impact on Illness or Injury [] Angry [] Fearful [] Anxious [] Often cries [] Exhaustion [] Unable to work [] Unable to attend samaritan [] Unable to walk/stand [] Unable to read [] Unable to drive [] Unable to eat/drink [] Unable to sleep [] Unable to be with family [] Patient intubated [] Other: Summary Time spent with patient 10 min
[2023-01-08] MEDS: sodium chloride 0.9% 500 ML 999 ML IV (11:56)
[2023-01-08 12:11] LABS: Glucose Point of Care 158 mg/dL (70-110)
--- NOTE | 2023-01-08 13:45 | PM.PN ---
Subjective Subjective: The patient was seen in her room. She had not worked with physical therapy aggressively at the time she was seen. She wanted to be able to be discharged home rather than to custodial. She does take care of her mother at home. Her mother is on a walker. She feels that she will be able to return there and help take care of her. Medications: Reviewed: Yes Vitals/I&O/Wt Last Vital Signs Temp 98.4 F 01/08/23 11:34 Pulse 93 01/08/23 11:34 Resp 15 01/08/23 11:34 BP 82/58 01/08/23 11:34 Pulse Ox 92 01/08/23 11:34 O2 Del Method Nasal Cannula 01/08/23 11:34 O2 Flow Rate 2 01/08/23 07:40 01/07/23 01/08/23 01/08/23 22:59 06:59 14:59 Intake Total 2250.0 / 3250.0 290 / 3540.0 790 / 790 Output Total 810 / 1060 700 / 1760 Balance 1440.0 / 2190.0 -410 / 1780.0 790 / 790 Weight last 48 hrs Weight 152 lb Physical Exam Const: COMMON NORMALS: no acute distress, average body habitus, patient oriented x3 and alert GENERAL APPEARANCE: cooperative and comfortable ORIENTATION/CONSCIOUSNESS: Yes awake HENMT: HEAD & SCALP: contusion (The patient had slight facial trauma with her fall.) Eye: GENERAL EYE: appearance normal, both eyes and all related structures Chest: COMMONS NORMALS: normal inspection of the chest Resp: COMMON NORMALS: normal respiratory effort EFFORT & INSPECTION: Yes able to speak in complete sentences and Yes symmetric chest movement Extremity: LEFT LOWER EXTREMITY: Yes hip joint (Dressing is dry and intact with minimal to no swelling.) Left hip: Yes palpation (Minimal to no tenderness.), Yes ROM (Not evaluated.) and Yes neurovascular exam (Intact distally with no evidence of DVT.) Neuro: COMMON NORMALS: patient oriented x3 SENSORIUM/ORIENTATION: Yes alert Psych: COMMON NORMALS: mental status grossly normal APPEARANCE: Yes grossly normal ATTITUDE: Yes calm and Yes engaged ATTENTION/CONCENTRATION: Yes attention grossly intact Skin: COMMON NORMALS: no rashes or lesions noted GENERAL SKIN EXAM: no rashes or lesions noted Urinary Catheter Management: Robbins: Cath Placed During This Visit: yes, but has since been removed by the nurse Reason for Continuing Indwelling Catheter: Perioperative Use in Selected Surgeries Date Urinary Catheter Removed: 01/08/23 Time Urinary Catheter Discontinued: 05:56 Data 01/08/23 05:00 01/08/23 05:00 A&P Assessment and plan (1) Closed intertrochanteric fracture of left hip: Patient was admitted through the emergency department with diagnosis of a slightly displaced intertrochanteric left hip fracture. The patient was taken to surgery the following day. She is seen today following her surgery and continues to work with therapies with intent to hopefully be discharged to home. Currently, she is doing well without complication. Qualifiers: Encounter type: initial encounter Fracture alignment: displaced Qualified Code(s): S72.142A - Displaced intertrochanteric fracture of left femur, initial encounter for closed fracture Attestations Medical Necessity Statement*: Follow-up care for left intertrochanteric hip fracture. Coding Level of Care Code Acute Code for [facility] Fwd Diagnoses Closed intertrochanteric fracture of left hip S72.142A Encounter type: initial encounter Fracture alignment: displaced
[2023-01-08] MEDS: sodium chloride 0.9% 500 ML IV (15:03)
[2023-01-08 16:57] LABS: Glucose Point of Care 183 mg/dL (70-110)
[2023-01-08] MEDS: sodium chloride 0.9% 1,000 ML 75 ML IV (17:11)
--- NOTE | 2023-01-08 17:39 | PC.NURSE ---
bladder scan pt hasnt urinated and has tried. scan showed 349 at the most.
[2023-01-08] MEDS: ARIPiprazole 10 mg Tablet 15 MG PO (20:58)
[2023-01-08 21:24] LABS: Glucose Point of Care 198 mg/dL (70-110)
[2023-01-09 04:15] VITALS: BP 139/79; PULSE 94; RESP 15; TEMP 36.7; O2SAT 94
[2023-01-09 06:55] LABS: Glucose Point of Care 108 mg/dL (70-110)
[2023-01-09] MEDS: sodium chloride 0.9% 1,000 ML 75 ML IV (07:07)
[2023-01-09 07:25] VITALS: PULSE 84; RESP 16; O2SAT 100
[2023-01-09 08:00] VITALS: BP 147/74; PULSE 87; RESP 16; TEMP 36.9; O2SAT 95
[2023-01-09] MEDS: memantine 5 mg tablet 10 MG PO (08:17)
[2023-01-09] MEDS: sennosides-docusate Tablet 1 TAB PO (08:17)
[2023-01-09] MEDS: aspirin 325 mg EC Tablet PO (08:17)
[2023-01-09 08:24] VITALS: RESP 16
[2023-01-09] MEDS: oxyCODONE 5 mg IR Tab/Cap PO (08:24)
[2023-01-09] MEDS: enoxaparin 40 mg/0.4 mL Syringe SUBCUT (09:31)
--- NOTE | 2023-01-09 09:45 | P.DS_ITS ---
Discharge Providers Date of Admission: 01/06/23 15:02 Date of Discharge: January 09, 2023 Attending Provider at Admission: Jin Madrigal MD Attending Provider at Discharge: Jin Madrigal MD Primary Care Provider: Deanna Young Diagnoses at Discharge Discharge Diagnosis (1) Closed intertrochanteric fracture of left hip: Status: Acute Qualifiers: Encounter type: initial encounter Fracture alignment: displaced Qualified Code(s): S72.142A - Displaced intertrochanteric fracture of left femur, initial encounter for closed fracture Reason for Visit Reason for Visit: fall Hospital Course Hospital Course 67-year-old female who presented to the hospital with chief complaint of weakness fatigue and sustaining a mechanical fall she was diagnosed with left intertrochanteric hip fracture, Dr. Becker was consulted, status post ORIF 01/07, postoperatively patient required IV fluid boluses for low blood pressure hemoglobin remained stable patient does have underlying cognitive impairment, lives with her mother, did well with physical therapy, home health recommended at the time of discharge. She is being discharged with stable hemodynamics. Patient has been getting hepatitis B treatment for last 1 year, I would hold off for now have her follow-up with Dr. Drew for further evaluation, added aspirin for DVT prophylaxis along Protonix. Physical Exam Narrative: Patient is awake and alert Sitting in a recliner This 50 Currently on 1 L nasal cannula Abdomen soft Signs of dehydration improving Pleasant and cooperative Urinary Catheter Management: Robbins: Cath Placed During This Visit: yes, but has since been removed by the nurse Reason for Continuing Indwelling Catheter: Perioperative Use in Selected Surgeries Date Urinary Catheter Removed: 01/08/23 Time Urinary Catheter Discontinued: 05:56 Discharge Data Studies Completed and Pending Completed Studies During Hospitalization Category Date Time Status XR chest 1V portable [id number] Stat Exams 01/06/23 14:39 Completed XR hip LT 1V wo/w pel [id number] Routine Exams 01/07/23 20:13 Completed XR hip LT 2-3V wo/w pel* [id number] Stat Exams 01/06/23 14:39 Completed Laboratory Results WBC 4.33 10^3/uL (3.29-11.43) 01/08/23 05:00 RBC 3.81 10^6/uL (3.85-5.65) L 01/08/23 05:00 Hgb 11.10 g/dL (11.27-16.99) L 01/08/23 05:00 Hct 36.0 % (36-47) 01/08/23 05:00 MCV 94.5 fl (85-98) 01/08/23 05:00 MCH 29.1 pg (27-33) 01/08/23 05:00 MCHC 30.8 g/dL (30-55) 01/08/23 05:00 RDW 12.5 % (12.1-15.1) 01/08/23 05:00 Plt Count 85 10^3/cmm (157-399) L 01/08/23 05:00 MPV 10.1 fL (7.4-10.4) 01/08/23 05:00 Neut % (Auto) 79.6 % 01/08/23 05:00 Lymph % (Auto) 15.2 % 01/08/23 05:00 [place] % (Auto) 4.8 % 01/08/23 05:00 Eos % (Auto) 0.0 % 01/08/23 05:00 Baso % (Auto) 0.2 % 01/08/23 05:00 Neut # (Auto) 3.44 10^3/uL (1.8-7.7) 01/08/23 05:00 Lymph # (Auto) 0.7 10^3/uL (0.8-4.8) L 01/08/23 05:00 [place]aston # (Auto) 0.2 10^3/uL (0.2-0.9) 01/08/23 05:00 Eos # (Auto) 0.0 10^3/uL (0.0-0.8) 01/08/23 05:00 Baso # (Auto) 0.0 10^3/uL (0.0-0.1) 01/08/23 05:00 Nucleated RBC % (auto) 0 % 01/08/23 05:00 Nucleated RBCs # 0.0 /100WBC 01/08/23 05:00 PT 12.00 SECONDS (12.1-14.9) L 01/06/23 14:16 INR 0.86 (0.8-1.2) 01/06/23 14:16 Sodium 140 mmol/L (136-145) 01/08/23 05:00 Potassium 4.5 mmol/L (3.5-5.1) 01/08/23 05:00 Chloride 107 mmol/L (98-107) 01/08/23 05:00 Carbon Dioxide 24 mmol/L (22-29) 01/08/23 05:00 Anion Gap 13.5 (5-19) 01/08/23 05:00 BUN 15 mg/dL (8-23) 01/08/23 05:00 Creatinine 1.0 mg/dL (0.5-0.9) H 01/08/23 05:00 GFR Calculation 55.5 mL/min (90-130) L 01/08/23 05:00 Glucose 173 mg/dL (65-115) H 01/08/23 05:00 POC Glucose 108 mg/dL (70-110) 01/09/23 06:42 Estimat Average Glucose 131 01/06/23 14:16 Hemoglobin A1c 6.2 % (4.0-6.0) H 01/06/23 14:16 Calculated Osmolality 295 mOsm/kg (285-295) 01/08/23 05:00 Calcium 8.6 mg/dL (8.5-10.5) 01/08/23 05:00 Magnesium 1.9 mg/dL (1.7-2.3) 01/07/23 04:35 Total Bilirubin 0.3 mg/dL (0.15-1.2) 01/06/23 14:16 AST 31 U/L (0-32) 01/06/23 14:16 ALT 27 U/L (0-33) 01/06/23 14:16 Alkaline Phosphatase 162 U/L (35-105) H 01/06/23 14:16 Total Protein 7.6 g/dL (6.6-8.7) 01/06/23 14:16 Albumin 4.4 g/dL (3.5-5.2) 01/06/23 14:16 Globulin 3.2 g/dL (1.3-4.6) 01/06/23 14:16 Vitamin B12 698 pg/mL (232-1245) 01/06/23 14:16 Vitals Last Vital Signs Temp 98.5 F 01/09/23 08:00 Pulse 87 01/09/23 08:00 Resp 16 01/09/23 08:24 BP 147/74 01/09/23 08:00 Pulse Ox 95 01/09/23 08:00 O2 Del Method Nasal Cannula 01/09/23 08:00 O2 Flow Rate 1 01/09/23 08:00 Discharge Plan Discharge Patient Disposition: Home Condition: Stable Prescriptions: New oxycodone 5 mg Tablet 5 mg PO Q4H PRN (Reason: Moderate To Severe Pain) Qty: 10 0RF sennosides-docusate sodium [Stool Softener-Laxative] 8.6-50 mg Tablet 1 tab PO DAILY Qty: 10 0RF aspirin 81 mg tablet,delayed release (DR/EC) 81 mg PO BID Qty: 60 0RF pantoprazole [Protonix] 20 mg tablet,delayed release (DR/EC) 20 mg PO BID Qty: 60 0RF Continued multivitamin Tablet 1 tab PO QAM albuterol sulfate 90 mcg/actuation HFA aerosol inhaler 2 inh INHALATION DAILY lidocaine 5 % adhesive patch,medicated 1 patch TOPICAL DAILY ascorbic acid (vitamin C) 500 mg capsule 500 mg PO QPM docusate sodium [Colace] 100 mg capsule 200 mg PO BID bisacodyl 5 mg tablet 10 mg PO QAM omeprazole 40 mg capsule,delayed release(DR/EC) 40 mg PO BID Janumet 50-1,000 mg tablet 1 tab PO QAM memantine [Namenda] 10 mg tablet 10 mg PO BID Qty: 60 1RF fluoxetine 40 mg capsule 40 mg PO QAM Qty: 30 1RF mupirocin 2 % ointment 1 applic topical BID PRN (Reason: sores) Qty: 15 0RF sucralfate 1 gram tablet 1 g PO BID aripiprazole 15 mg tablet 15 mg PO BEDTIME triamcinolone acetonide 0.1 % ointment See Rx Instructions .ROUTE .COMPLEX Rx Instructions: Apply to affected areas on arms and legs no more than 2 weeks per month. Not for face Discontinued propranolol 40 mg tablet 20 mg PO BID PRN (Reason: Headache) meloxicam 15 mg tablet 15 mg PO QPM entecavir 0.5 mg tablet 0.5 mg PO DAILY Qty: 90 3RF Discharge Orders: Discharge Order (Routine); Ordered 01/09/23 Ordered By: Jin Madrigal Other Ambulatory Orders: DME: Van (Order) Location: None Selected Ordered By: Leann Carlisle Referrals: Deanna Young PA [Primary Care Provider] - Patient Instructions: Opioid Safety Discharge Attestations Time Spent in Discharge Care*: greater than 30 min Quality Metrics Clinical Quality Measures [ No reported AMI, CVA or VTE this stay] Coding Level of Care Code Acute Code for [facility] Fwd Diagnoses Closed intertrochanteric fracture of left hip S72.142A Encounter type: initial encounter Fracture alignment: displaced
--- NOTE | 2023-01-09 11:11 | PC.CHAP ---
Pastoral Care Encounter/Spiritual Assessment Type of Contact [] Declined travel insurance agent visit [] Patient/Family/Request visit [] Outpatient visit [] Follow-up visit [] Physician referral [] Code/Alert [x] Routine visit [] Staff referral [] Actively dying [] Patient sleeping [] Family support [] [] Out of room [] Palliative care [] [x] Receiving care in room [] Pre-surgical visit [] Trauma [] Long length of stay [] ICU visit [] Other: Relational/Emotional Strength [x] Patient feels connected with others/family/visitors/staff [] Distress [] Loneliness/isolation [] Abandonment Spirituality of Patient [x] Person of [place] [] Attends Amish of their [place] [x] Believes in Prayer [] Reads Bible or Orthodoxy materials [] There are Spiritual issues to be addressed Supervisor Telephone Information Interventions [x] Prayer [x] Active listening [x] Non-anxious presence [x] Spiritual/emotional support [] Crisis/trauma care [x] Spiritual counseling [] Bereavement support [] Provided bereavement packet [] Provided Bible/devotional materials [] Provided toy/stuffed animal, coloring book to patient or family member [] Provided Communion [] Anointing/[place] [] Salvation [x] Completed spiritual assessment [] Other: Impact on Illness or Injury [] Angry [] Fearful [] Anxious [] Often cries [] Exhaustion [] Unable to work [] Unable to attend denominational [] Unable to walk/stand [] Unable to read [] Unable to drive [] Unable to eat/drink [] Unable to sleep [] Unable to be with family [] Patient intubated [] Other: Summary Negative in pain well need some rehab well be able mto recover at home Time spent with patient 10 mins
[2023-01-09 11:39] LABS: Glucose Point of Care 154 mg/dL (70-110)
[2023-01-09] MEDS: insulin lispro 100 unit/1 mL SUBCUT (11:51)
[2023-01-09 12:46] VITALS: O2SAT 87
[2023-01-09 14:20] VITALS: RESP 16
== END 2023-01-09 14:21 | disposition home or self-care (01) | DRG 481 ==
LOC: ER 15:14 → MEDSURG 15:17
PROVIDERS: Specialist; Admitting Provider Internal Medicine; Emergency Provider Emergency Medicine; PCP Physician Assistant; Visit Provider Internal Medicine
PROC: 0QH736Z Insertion of Intramedullary Internal Fixation Device into Left Upper Femur, Percutaneous Approach (ICD-10-PCS; CPT 27245; principal; 2023-01-07 16:50)
DX: S72.142A Displaced intertrochanteric fracture of left femur, initial encounter for closed fracture (principal); B18.1 Chronic viral hepatitis B without delta-agent; F33.9 Major depressive disorder, recurrent, unspecified; W01.0XXA Fall on same level from slipping, tripping and stumbling without subsequent striking against object, initial encounter; F17.210 Nicotine dependence, cigarettes, uncomplicated; E86.0 Dehydration; M54.12 Radiculopathy, cervical region; F43.12 Post-traumatic stress disorder, chronic
CPT/HCPCS: 36415; 36416; 71045; 73501; 73502; 76000; 80048; 80053; 82607; 82962; 83036; 83735; 85025; 85610; 93005; 94760; 96372; 96374; 96375; 97110; 97116; 97161; 97166; 97530; 97535; 99285; C1713; J0131; J0690; J1100; J1170; J1650; J1815; J2405; J2704; J3010; J7030; J7040; J7120

== ENCOUNTER → 2023-01-20 10:34 | Outpatient (BNVA) | payer MEDICARE, MEDICAID, SELFPAY | PROVIDERS: PCP Physician Assistant; Visit Provider Nurse Practitioner | DX: Z48.89 Encounter for other specified surgical aftercare (principal); M53.3 Sacrococcygeal disorders, not elsewhere classified; S72.142D Displaced intertrochanteric fracture of left femur, subsequent encounter for closed fracture with routine healing; X58.XXXD Exposure to other specified factors, subsequent encounter | CPT/HCPCS: 72220; 73502; 99024 ==

== ENCOUNTER → 2023-02-17 14:29 | Outpatient (BNVA) | payer MEDICARE, MEDICAID, SELFPAY | PROVIDERS: PCP Physician Assistant; Visit Provider Nurse Practitioner Family | DX: L98.1 Factitial dermatitis (principal); L70.5 Acne excoriee; L57.8 Other skin changes due to chronic exposure to nonionizing radiation; L57.0 Actinic keratosis | CPT/HCPCS: 17000; 99214 ==

== ENCOUNTER → 2023-02-21 11:54 | Outpatient (BNVA) | payer MEDICARE, MEDICAID, SELFPAY | PROVIDERS: PCP Physician Assistant; Visit Provider Nurse Practitioner | DX: Z48.89 Encounter for other specified surgical aftercare; M53.3 Sacrococcygeal disorders, not elsewhere classified; S72.142D Displaced intertrochanteric fracture of left femur, subsequent encounter for closed fracture with routine healing; X58.XXXD Exposure to other specified factors, subsequent encounter | CPT/HCPCS: 73502; 99024 ==

== ENCOUNTER → 2023-02-28 09:25 | Outpatient (BNVA) | payer MEDICARE, MEDICAID, SELFPAY | PROVIDERS: PCP Physician Assistant; Visit Provider Nurse Practitioner Psychiatric/Mental Health | DX: Z79.899 Other long term (current) drug therapy (principal) | CPT/HCPCS: 80061; 83036 ==

== ENCOUNTER → 2023-03-21 14:31 | Outpatient (BNVA) | payer OTHER, MEDICAID, SELFPAY | PROVIDERS: PCP Physician Assistant; Visit Provider Family Medicine Adult Medicine | DX: R51.9 Headache, unspecified (principal); J44.9 Chronic obstructive pulmonary disease, unspecified; J06.9 Acute upper respiratory infection, unspecified; J30.9 Allergic rhinitis, unspecified | CPT/HCPCS: 87400 ==

== ENCOUNTER → 2023-04-24 10:15 | Outpatient (BNVA) | payer MEDICARE, MEDICAID, SELFPAY | PROVIDERS: PCP Physician Assistant; Visit Provider Nurse Practitioner | DX: M16.12 Unilateral primary osteoarthritis, left hip (principal); S72.142D Displaced intertrochanteric fracture of left femur, subsequent encounter for closed fracture with routine healing; M53.3 Sacrococcygeal disorders, not elsewhere classified; X58.XXXD Exposure to other specified factors, subsequent encounter | CPT/HCPCS: 99213 ==

== ENCOUNTER → 2023-05-22 10:44 | Outpatient (BNVA) | payer MEDICARE, MEDICAID, SELFPAY | PROVIDERS: PCP Physician Assistant; Visit Provider Nurse Practitioner | DX: S72.142D Displaced intertrochanteric fracture of left femur, subsequent encounter for closed fracture with routine healing; M16.12 Unilateral primary osteoarthritis, left hip; M53.3 Sacrococcygeal disorders, not elsewhere classified; X58.XXXD Exposure to other specified factors, subsequent encounter | CPT/HCPCS: 73502; 99213 ==

== ENCOUNTER 2023-07-23 13:00 | Outpatient (CLI) | payer MEDICARE, MEDICAID, SELFPAY ==
--- NOTE | 2023-07-23 13:06 | XR_ITS ---
WS: [id number] DEXA (DUAL ENERGY X-RAY ABSORPTIOMETRY) Bone mineral density was performed using a UXCam machine. HISTORY: SCREENING FOR OSTEOPOROSIS COMPARISON: None available. Lumbar spine BMD (L1-L4): 0.839 g/cm2 T score: -2.8 Z score: -1.3 Total hip BMD: Right: 0.592. T score: -3.3 Z score: -2.1 Left forearm BMD: 0.527 g/cm2. T score: -4.0 Z score: -2.5 10 year probability of a major osteoporotic fracture is 32.1%. XR/XR DEXA axial skeleton* [id number] IMPRESSION: OSTEOPOROSIS based upon the WHO classification for females.
== END 2023-07-23 13:01 | disposition home or self-care (01) ==
LOC: RAD 13:02
PROVIDERS: PCP Physician Assistant; Visit Provider Physician Assistant
DX: M81.0 Age-related osteoporosis without current pathological fracture (principal); Z13.820 Encounter for screening for osteoporosis
CPT/HCPCS: 77080

== ENCOUNTER 2023-08-29 12:58 | Outpatient (CLI) | payer MEDICARE, MEDICAID, SELFPAY ==
--- NOTE | 2023-08-29 13:14 | MM_ITS ---
WS: [id number] BILATERAL 3D TOMOSYNTHESIS DIGITAL SCREENING MAMMOGRAPHY WITH CAD CLINICAL INFORMATION: SCREENING HISTORY: Screening mammogram. No current complaints. COMPARISON: 2019 TECHNIQUE: Bilateral CC and MLO views. FINDINGS: The breasts are composed of heterogeneous fibroglandular density tissue, which can limit the detectio n of small underlying mass lesions. No suspicious mass, asymmetry, calcifications, or architectural d istortion. No evidence of malignancy. A few incidental punctate calcifications. MM/[place] [id number] IMPRESSION: BI-RADS: 2-Benign FOLLOW UP: 1 Year Follow-up Recommend return to annual screening mammography.
== END 2023-08-29 12:59 | disposition home or self-care (01) ==
PROVIDERS: PCP Physician Assistant; Visit Provider Physician Assistant
DX: Z12.31 Encounter for screening mammogram for malignant neoplasm of breast (principal); R92.333 Mammographic heterogeneous density, bilateral breasts; R92.1 Mammographic calcification found on diagnostic imaging of breast
CPT/HCPCS: 77063; 77067

== ENCOUNTER → 2023-10-09 12:47 | Outpatient (BNVA) | payer MEDICARE, MEDICAID, SELFPAY | PROVIDERS: PCP Physician Assistant; Visit Provider Orthopaedic Surgery | DX: M47.896 Other spondylosis, lumbar region (principal); M54.9 Dorsalgia, unspecified; M43.16 Spondylolisthesis, lumbar region | CPT/HCPCS: 72100; 99214 ==

== ENCOUNTER 2023-11-05 12:49 | Outpatient (CLI) | payer MEDICARE, MEDICAID, SELFPAY ==
--- NOTE | 2023-11-05 13:00 | MR_ITS ---
WS: [id number] MRI LUMBAR SPINE NONCONTRAST TECHNIQUE: Sagittal T1, T2 and STIR imaging. Axial T1 and T2 imaging. CLINICAL INFORMATION: back pain COMPARISON: MRI 11/05/[id number] FINDINGS: Mild lumbar curve. No acute compression. Slight anterolisthesis L4 on L5. No high-grade central canal stenosis. L1-L2: Moderate facet arthropathy. Spinal canal and foramen are patent. L2-L3: Mild annular bulging. Slight narrowing of the LEFT subarticular recess. Moderate facet arthrop athy. Mild LEFT foraminal narrowing. L3-L4: Mild LEFT and no significant RIGHT foraminal narrowing. Mild facet arthropathy. Spinal canal i s patent. L4-L5: Slight anterolisthesis L4 on L5. Mild annular bulging. Moderate facet arthropathy. Mild LEFT a nd no significant RIGHT foraminal narrowing. Moderate facet arthropathy. L5-S1: Mild annular bulging. Tiny annular fissure. Foramen are patent. Moderate facet arthropathy. Sp inal canal is patent.. Visualized pelvic bony structures: Normal. Paravertebral soft tissues: Normal. Mild disc bulging in the cervical spine on the architectural design lecturer imaging and C5-C6 and C6-C7 with mild central ca nal stenosis. Moderate esophageal hiatal hernia partially visualized. MR/MR lumbar spine wo con* [id number] IMPRESSION: 1. Mild lumbar curve. No acute compression. Slight anterolisthesis L4 on L5. 2. Mild disc bulging L4-5 with slight effacement of ventral thecal sac and sli ght narrowing of the subarticular recess bilaterally. This is similar to previo us. Mild LEFT L4-5 foraminal narrowing. 3. Mild annular bulging L5-S1 with a tiny annular fissure is unchanged. Slight effacement of the ventral thecal sac. 4. Tiny LEFT subarticular protrusion L2-3 slightly impinges the traversing LEF T L3 nerve root similar to previous. Mild LEFT L2-3 foraminal narrowing. 5. Moderate facet arthropathy L4-L5 and L5-S1.
== END 2023-11-05 12:50 | disposition home or self-care (01) ==
LOC: RAD 12:51
PROVIDERS: PCP Physician Assistant; Visit Provider Orthopaedic Surgery
DX: M47.896 Other spondylosis, lumbar region (principal); M47.898 Other spondylosis, sacral and sacrococcygeal region
CPT/HCPCS: 72148

== ENCOUNTER → 2024-02-17 09:00 | Outpatient (BNVA) | payer OTHER, MEDICAID, SELFPAY | PROVIDERS: PCP Physician Assistant; Visit Provider Nurse Practitioner Psychiatric/Mental Health | DX: Z79.899 Other long term (current) drug therapy (principal) | CPT/HCPCS: 80053; 80061; 83036 ==

== ENCOUNTER → 2024-02-18 13:07 | Outpatient (BNVA) | payer OTHER, MEDICAID, SELFPAY | PROVIDERS: PCP Physician Assistant; Visit Provider Nurse Practitioner Family | DX: L91.8 Other hypertrophic disorders of the skin (principal); L70.5 Acne excoriee; L82.0 Inflamed seborrheic keratosis; L57.8 Other skin changes due to chronic exposure to nonionizing radiation; L81.5 Leukoderma, not elsewhere classified; X32.XXXA Exposure to sunlight, initial encounter; X58.XXXA Exposure to other specified factors, initial encounter; L57.0 Actinic keratosis | CPT/HCPCS: 17000; 99214 ==

== ENCOUNTER → 2024-08-18 13:18 | Outpatient (BNVA) | payer MEDICARE, MEDICAID, SELFPAY ==
[2024-03-08 15:06] VITALS: BP 126/71; BMI 23.9
== END ==
PROVIDERS: PCP Physician Assistant; Referring Provider Physician Assistant; Visit Provider Nurse Practitioner Family
DX: M47.812 Spondylosis without myelopathy or radiculopathy, cervical region (principal); M47.22 Other spondylosis with radiculopathy, cervical region; M47.12 Other spondylosis with myelopathy, cervical region; M47.816 Spondylosis without myelopathy or radiculopathy, lumbar region
CPT/HCPCS: 99214

== ENCOUNTER 2024-08-30 12:45 | Outpatient (CLI) | payer MEDICARE, MEDICAID, SELFPAY ==
[2024-03-08 15:06] VITALS: BP 126/71; BMI 23.9
--- NOTE | 2024-08-30 12:50 | MM_ITS ---
WS: [id number] BILATERAL 3D TOMOSYNTHESIS DIGITAL SCREENING MAMMOGRAPHY WITH CAD CLINICAL INFORMATION: screen HISTORY: Screening mammogram. No current complaints. COMPARISON: 2023 TECHNIQUE: Bilateral CC and MLO views. FINDINGS: The breasts are composed of heterogeneous fibroglandular density tissue, which can limit the detection of small underlying mass lesions. No suspicious mass, asymmetry, calcifications, or architectural distortion. No evidence of malignancy. A few incidental calcifications. MM/MM [facility] tomosynthesis [id number] IMPRESSION: DENSITY: The breasts are heterogeneously dense, which may obscure small masses. BI-RADS: 2 - Benign FOLLOW UP: 1 Year Follow-up Recommend return to annual screening mammography.
== END 2024-08-30 12:46 | disposition home or self-care (01) ==
PROVIDERS: PCP Physician Assistant; Visit Provider Physician Assistant
DX: Z12.31 Encounter for screening mammogram for malignant neoplasm of breast (principal)
CPT/HCPCS: 77063; 77067

== ENCOUNTER → 2024-09-20 12:58 | Outpatient (BNVA) | payer OTHER, MEDICAID, SELFPAY ==
[2024-03-08 15:06] VITALS: BP 126/71; BMI 23.9
== END ==
PROVIDERS: PCP Physician Assistant; Visit Provider Nurse Practitioner Family
DX: M79.18 Myalgia, other site (principal); M54.9 Dorsalgia, unspecified; M47.812 Spondylosis without myelopathy or radiculopathy, cervical region; M47.22 Other spondylosis with radiculopathy, cervical region; M47.12 Other spondylosis with myelopathy, cervical region; M47.816 Spondylosis without myelopathy or radiculopathy, lumbar region
CPT/HCPCS: 20553; 99214; J1010; J3490

== ENCOUNTER → 2024-10-04 13:54 | Outpatient (BNVA) | payer OTHER, MEDICAID, SELFPAY ==
[2024-03-08 15:06] VITALS: BP 126/71; BMI 23.9
== END ==
PROVIDERS: PCP Physician Assistant; Visit Provider Nurse Practitioner Family
DX: M54.9 Dorsalgia, unspecified (principal); M47.812 Spondylosis without myelopathy or radiculopathy, cervical region; M47.22 Other spondylosis with radiculopathy, cervical region; M47.12 Other spondylosis with myelopathy, cervical region; M47.816 Spondylosis without myelopathy or radiculopathy, lumbar region; F17.210 Nicotine dependence, cigarettes, uncomplicated
CPT/HCPCS: 99214

== ENCOUNTER → 2024-11-30 13:27 | Outpatient (BNVA) | payer OTHER, MEDICAID, SELFPAY ==
[2024-03-08 15:06] VITALS: BP 126/71; BMI 23.9
== END ==
PROVIDERS: PCP Physician Assistant; Visit Provider Nurse Practitioner Family
DX: M47.812 Spondylosis without myelopathy or radiculopathy, cervical region (principal); M47.22 Other spondylosis with radiculopathy, cervical region; M47.12 Other spondylosis with myelopathy, cervical region; M47.816 Spondylosis without myelopathy or radiculopathy, lumbar region; G89.29 Other chronic pain; F17.210 Nicotine dependence, cigarettes, uncomplicated
CPT/HCPCS: 99214

== ENCOUNTER 2025-01-03 16:05 | Outpatient (CLI) | payer OTHER, MEDICAID, SELFPAY ==
[2024-03-08 15:06] VITALS: BP 126/71; BMI 23.9
--- NOTE | 2025-01-03 16:11 | CT_ITS ---
WS: [id number] LDCT LUNG CANCER SCREENING HISTORY: NICOTINE DEPENDENCE TECHNIQUE: Axial imaging performed from the apices to 1 cm below the costophrenic angles. Coronal and sagittal reformats are submitted with axial MIP series. All CT scans at [facility] use at least one of these dose optimization techniques: automated exposure control; mA and/or kV adjustment per patient size (includes targeted exams where dose is matched to clinical indication); or iterative reconstruction. DLP: 50.41 mGy.cm DIvol: Mean CTDIvol: 0.80 (mGy) COMPARISON: 08/07/2022 Diagnostic quality: Satisfactory Lungs: New curvilinear opacification in the anterior RIGHT upper lobe consistent with atelectasis. There are a few additional bandlike areas of atelectasis in the lower lung wkok. Calcification along the RIGHT major fissure. No suspicious masses or nodules identified. Mild interstitial thickening in the periphery of each lung as seen before. No mass. Heart: Normal size heart with no pericardial effusion.. Other findings: Mild atherosclerosis aorta. Mild circumferential esophageal wall thickening in the upper thorax. Consider mild esophagitis. No mediastinal or hilar adenopathy. No pericardial or pleural effusions. Large hiatal hernia. Cirrhotic liver. No adrenal mass. Prior cholecystectomy. Atrophy upper pole of each kidney. Calcifications upper pole RIGHT kidney. CT/CT lung screening [id number] IMPRESSION: LUNG-RADS: 2-Benign Appearance or Behavior FOLLOW UP: 12 Month: Continue annual screening with LDCT OTHER FINDINGS (S MODIFIER): None.
== END 2025-01-03 16:06 | disposition home or self-care (01) ==
LOC: RAD 16:07
PROVIDERS: PCP Physician Assistant; Visit Provider Physician Assistant
DX: Z12.2 Encounter for screening for malignant neoplasm of respiratory organs (principal); F17.210 Nicotine dependence, cigarettes, uncomplicated; I70.0 Atherosclerosis of aorta; K22.89 Other specified disease of esophagus; K44.9 Diaphragmatic hernia without obstruction or gangrene; Z90.49 Acquired absence of other specified parts of digestive tract; N26.1 Atrophy of kidney (terminal); N20.0 Calculus of kidney; J98.11 Atelectasis; R91.8 Other nonspecific abnormal finding of lung field
CPT/HCPCS: 71271

== ENCOUNTER → 2025-02-17 13:36 | Outpatient (BNVA) | payer MEDICARE, MEDICAID, OTHER, SELFPAY ==
[2024-03-08 15:06] VITALS: BP 126/71; BMI 23.9
== END ==
PROVIDERS: PCP Physician Assistant; Visit Provider Nurse Practitioner Family
DX: L98.1 Factitial dermatitis (principal); L70.5 Acne excoriee; L57.8 Other skin changes due to chronic exposure to nonionizing radiation; L81.5 Leukoderma, not elsewhere classified; X32.XXXA Exposure to sunlight, initial encounter; L81.4 Other melanin hyperpigmentation
CPT/HCPCS: 99213